=== PATIENT | male | born 1935 | race Caucasian/White ===

== ENCOUNTER 2017-12-14 17:37 | Emergency (ER) | payer MEDICARE, OTHER ==
--- NOTE | 2017-12-14 17:55 | ED Physician Documentation ---
PD HPI FOCAL NEURO - Stated complaint Stated Complaint: L SIDE WEAKNESS - Chief complaint Chief Complaint: Neuro - History obtained from History obtained from: Patient, Family - History of Present Illness Timing - onset: Today Timing - duration: Minutes (the patient had gone for his usual walk down the road and back, about 3/4 mile, and he said he was feeling okay. He got in the house and his daughter and thought he was leaning to the side and had and was maybe slightly slow to answer questions. No focal weakness, facial droop, trouble articulating words. He was able to walk up to garage without ataxia.) Timing - details: Abrupt onset, Now resolved Severity of deficit: Mild Weakness: Other. No: Face, Hand, Leg Numbness: Other. No: Face, Hand, Leg Associated symptoms: No: Headache, Nausea / vomiting, Head injury Contributing factors: negative: Anticoagulated, Vascular dz, Atrial fibrillation Baseline status: positive: A&OX3, ambulatory, indep Similar symptoms before: Has not had sx before Recently seen: Not recently seen Review of Systems Constitutional: denies: Fever, Chills, Myalgias Nose: denies: Rhinorrhea / runny nose, Congestion Throat: denies: Sore throat Cardiac: denies: Chest pain / pressure, Palpitations Respiratory: denies: Dyspnea, Cough, Wheezing GI: denies: Abdominal Pain, Nausea, Vomiting Skin: denies: Abrasion (s), Laceration (s) Musculoskeletal: denies: Neck pain, Back pain Neurologic: denies: Generalized weakness, Focal weakness, Numbness, Near syncope PD PAST MEDICAL HISTORY - Past Medical History Cardiovascular: None Respiratory: None Neuro: None Endocrine/Autoimmune: Type 2 diabetes - Past Surgical History General: Appendectomy, Other - Present Medications Home Medications: Ambulatory Orders Medication Instructions Recorded Confirmed Aspirin Chewable [[place] 81 mg PO DAILY 08/09/13 09/08/14 Aspirin] Metformin HCl 500 mg PO DAILY 08/09/13 09/08/14 Metronidazole/Skin Cleansr #23 1 each TP DAILY 08/09/13 09/08/14 [Rosadan 0.75% Cream Kit] Mometasone Furoate [Elocon] 15 gm TP DAILY 08/09/13 09/08/14 Multivit-Min/FA/Lycopene/Lut 1 tab PO DAILY 08/09/13 09/08/14 [Centrum Silver Tablet] Simvastatin [Zocor] 40 mg PO DAILY 08/09/13 09/08/14 Epinephrine [Epipen 2-Lion] 0.3 mg SUBQ ONCE PRN 08/10/13 09/06/14 - Allergies Allergies/Adverse Reactions: Allergies Allergy/AdvReac Type Severity Reaction Status Date / Time sea food Allergy Severe Respiratory Uncoded 08/10/13 08:54 - Living Situation Living Situation: reports: With spouse/s.o. Living Arrangement: reports: At home - Social History Smoking Status: Never smoker PD ED PE NORMAL - Vitals Vital signs reviewed: Yes - General General: Alert and oriented X 3, No acute distress, Well developed/nourished - HEENT HEENT: Atraumatic, Pharynx benign - Neck Neck: Supple, no meningeal sign, No adenopathy - Cardiac Cardiac: RRR, No murmur - Respiratory Respiratory: Clear bilaterally - Abdomen Abdomen: Normal bowel sounds, Soft, Non tender, Non distended - Back Back: No CVA TTP - Derm Derm: Normal color, Warm and dry - Extremities Extremities: No deformity, No tenderness to palpate, Normal ROM s pain, No edema, No calf tenderness / cord - Neuro Neuro: Alert and oriented X 3, 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, No motor deficit, No sensory deficit, Normal speech Eye Opening: Spontaneous Motor: Obeys Commands Verbal: Oriented GCS Score: 15 NIHSS - Level of Consciousness Level of consciousness: (0) Alert, Keenly responsive LOC Questions: (0) Answers both Q's correct LOC Commands: (0) Performs both correctly - Gaze Best Gaze: (0) Normal - Visual Visual: (0) No loss - Facial Palsy Facial Palsy: (0) Normal, symmetrical movement - Motor Arms (both separate) Motor Arm (right): (0) No drift Motor Arm (left): (0) No drift - Motor Legs (both separate) Motor Leg (right): (0) No drift Motor Leg (left): (0) No drift - Limb Ataxia Limb Ataxia: (0) Absent - Sensory Sensory: (0) Normal - Best Language Best Language: (0) No aphasia - Dysarthria Dysarthria: (0) Normal - Extinction and Inattention (formally neg Extinction and inattention: (0) No abnormality - Total Score/Results Total Score/Result: 0 Results - Vitals Vitals: Vital Signs - 24 hr 12/14/17 17:44 Temperature 36.3 C L Heart Rate 77 Respiratory 14 Rate Blood Pressure 135/91 H O2 Saturation 100 Oxygen O2 Source Room air - Rads (name of study) head CT Radiology: Prelim report reviewed (normal) neck and head angio Radiology: Prelim report reviewed, Discussed with rads (no signs of CVA, stenoses, dissections. Normal studies. ) PD MEDICAL DECISION MAKING - ED course Complexity details: considered differential (His symptoms are mild and not clearly TIA. His daughter and state he does seem to be leaning to one side but was still able to walk straight and did not have any focal weaknesses nor visual change. I did do CT and CTA and some blood tests. These are normal. He does take an aspirin a day anyway for heart. I do not see that he would benefit from hospitalization. He would like to go home. He is discharged stable without any problems at this time.), d/w patient, d/w family Departure - Departure Disposition: 01 Home, Self Care Clinical Impression: Ataxia Condition: Stable Record reviewed to determine appropriate education?: Yes Instructions: ED Transient Ischemic Attack Follow-Up: Deshawn Quintero MD [Primary Care Provider] - Comments: The description of your symptoms is not clear if it was neurologic or vascular of the brain. There is no signs of stroke or blood flow abnormality to the brain at this time. You can be a bit off balance related to in her ear at times as well. At this point continue your baby aspirin daily. Drink lots of fluids. Continue your other usual medicines. Follow-up with your primary care or return to the ER if recurrent episodes or other symptoms. Discharge Date/Time: 12/14/17 20:41
[2017-12-14 18:46] LABS: BASOPHILS # (AUTO) 0.1 10^3/uL (0.0-0.1); EOSINOPHILS # (AUTO) 0.1 10^3/uL (0.0-0.7); EOSINOPHILS % (AUTO) 1.9 %; HGB - HEMOGLOBIN 15.4 g/dL (14.0-18.0); LYMPHOCYTES # (AUTO) 2.4 10^3/uL (1.5-3.5); LYMPHOCYTES % (AUTO) 35.7 %; MEAN CORPUSCULAR HEMOGLOBIN 29.7 pg (27.0-31.0); MEAN CORPUSCULAR HGB CONC 34.3 g/dL (32.0-36.0); MEAN CORPUSCULAR VOLUME 86.5 fL (80.0-94.0); MEAN PLATELET VOLUME 8.5 fL (7.4-11.4); MONOCYTES # (AUTO) 0.9 10^3/uL (0.0-1.0); MONOCYTES % (AUTO) 13.5 %; NEUTROPHILS # (AUTO) 3.2 10^3/uL (1.5-6.6); NEUTROPHILS % (AUTO) 47.9 %; PLT - PLATELET COUNT 173 10^3/uL (130-450); RED BLOOD COUNT 5.19 10^6/uL (4.70-6.10); RED CELL DISTRIBUTION WIDTH 14.2 % (12.0-15.0); WHITE BLOOD COUNT 6.6 x10^3/uL (4.8-10.8)
[2017-12-14] MEDS ORDERED: IOPAMIDOL-300 100 ML VIAL ONE (18:53)
[2017-12-14 18:57] LABS: ALBUMIN/GLOBULIN RATIO 1.1 (1.0-2.2); BILIRUBIN,TOTAL 0.4 mg/dL (0.2-1.0); CALCIUM 8.9 mg/dL (8.5-10.3); CREATININE 0.9 mg/dL (0.6-1.2); MAGNESIUM 2.3 mg/dL (1.7-2.8); TOTAL PROTEIN 7.6 g/dL (6.7-8.2)
[2017-12-14] MEDS ORDERED: ONDANSETRON 4 MG/2 ML VIAL IVP STA (19:24)
[2017-12-14] MEDS ORDERED: ONDANSETRON 4 MG/2 ML VIAL ONE (19:26)
[2017-12-14] MEDS ORDERED: IOPAMIDOL-300 100 ML VIAL IVP ONE (19:35)
--- NOTE | 2017-12-14 19:59 | CT Report ---
Reason: balance symptoms this afternoon Procedure Date: 12/14/2017 Accession Number: [id number] / [id number] Procedure: CT - Neck Angio CPT Code: FULL RESULT: EXAM: CT ANGIOGRAM NECK EXAM DATE: 12/14/2017 07:13 PM. CLINICAL HISTORY: 82-year-old male. Balance symptoms this afternoon. COMPARISON: NECK ANGIO 12/14/2017 7:31 PM. TECHNIQUE: Routine axial helical imaging was performed from the skull base through the aortic arch. Reconstructions: Routine multiplanar 3D MIP reconstructions. IV Contrast: 80 cc Isovue-300. Evaluation of arterial stenosis is based on a NASCET method of measurement. In accordance with CT protocol optimization, one or more of the following dose reduction techniques were utilized for this exam: automated exposure control, adjustment of mA and/or KV based on patient size, or use of iterative reconstructive technique. FINDINGS: Right Carotid: The common carotid, internal carotid, and external carotid arteries are widely patent. No dissection, significant atherosclerotic plaque, or calcification identified. Left Carotid: The common carotid, internal carotid, and external carotid arteries are widely patent. No dissection, significant atherosclerotic plaque, or calcification identified. Vertebrals: The vertebrobasilar system shows no stenoses. Intracranial Circulation: Concurrently obtained CTA head is dictated separately. Other: The visualized lung apices are clear. Moderate multilevel degenerative spondylosis of the visualized spine, no acute fracture or malalignment. The visualized soft tissues of the neck demonstrate no acute abnormality. IMPRESSION: 1. No CTA evidence of hemodynamically significant stenosis, large vessel occlusion, acute dissection, aneurysm, or vascular malformation within extracranial arteries. 2. Concurrently obtained CTA head is dictated separately. RADIA The above findings were discussed with Talha Marroquin by Dr. Emery Hansen at 19:56 hrs on 12/14/17.
--- NOTE | 2017-12-14 20:06 | CT Report ---
Reason: balance symptoms this afternoon Procedure Date: 12/14/2017 Accession Number: [id number] / [id number] Procedure: CT - Head Angio CPT Code: FULL RESULT: EXAM: CT ANGIOGRAM HEAD. CT SCAN OF THE HEAD WITHOUT AND WITH CONTRAST. EXAM DATE: 12/14/2017 07:13 PM CLINICAL HISTORY: 10-year-old male. Balance symptoms this afternoon. COMPARISON: HEAD ANGIO 12/14/2017 7:31 PM. TECHNIQUE: - CT Scan Head: Using a multidetector scanner, axial images were acquired from the foramen magnum to the skull vertex prior to and following contrast administration. - CT Angiogram: Using a multidetector scanner, high-resolution axial images were acquired from the skull base through vertex following rapid infusion of intravenous contrast. Reformats: Multiplanar MIP reformats were reconstructed. Nascet criteria used for stenosis measurement. IV Contrast: 80 cc Omnipaque 350. In accordance with CT protocol optimization, one or more of the following dose reduction techniques were utilized for this exam: automated exposure control, adjustment of mA and/or KV based on patient size, or use of iterative reconstructive technique. FINDINGS: NON-CONTRAST HEAD: Parenchyma: No intraparenchymal hemorrhage. No evidence of mass, midline shift, or CT findings of infarction. Kelley-white differentiation is distinct. Moderate scattered periventricular and deep white matter hypodensities, nonspecific, likely representing sequela of chronic microangiopathy. Extraaxial Spaces: Normal for age. No subdural or epidural collections identified. Ventricles: Normal in size and position. Sinuses and orbits: Status post bilateral lens replacement surgery. Imaged paranasal sinuses, orbits, and mastoids show no significant abnormality. Bones: No evidence of fracture or calvarial defect. Other: None. POST-CONTRAST HEAD: No abnormal enhancement. CT ANGIOGRAM HEAD: Mild atherosclerosis right carotid siphon, maximal stenosis 20-30%. Mild atherosclerosis left carotid siphon, maximal stenosis 20-30%. The posterior communicating arteries are not clearly visualized on either side, likely hypoplastic or aplastic. The basilar artery appears unremarkable. The left TUFT MACHINE OPERATOR appears unremarkable. The right TUFT MACHINE OPERATOR appears unremarkable. The right MCA appears unremarkable. The ACAs bilaterally appear unremarkable. The left MCA is unremarkable. DURAL VENOUS SINUSES AND MAJOR CENTRAL VEINS: Patent. IMPRESSION: 1. No evidence of acute intracranial abnormality on the noncontrast CT head. Specifically, no evidence of acute infarct, intracranial hemorrhage, mass effect, midline shift, or hydrocephalus. 2. Moderate scattered periventricular and deep white matter hypodensities, nonspecific, likely representing sequela of chronic microangiopathy. 3. No abnormal enhancement on the postcontrast CT head. 4. No CTA evidence of high-grade stenosis, large vessel occlusion, acute dissection, aneurysm, or vascular malformation within intracranial arteries. 5. Concurrently obtained CTA neck is dictated separately. 6. Mild atherosclerosis right carotid siphon, maximal stenosis 20-30%. 7. Mild atherosclerosis left carotid siphon, maximal stenosis 20-30%. RADIA The above findings were discussed with Talha Marroquin by Dr. Emery Hansen at 19:56 hrs on 12/14/17.
[2017-12-14 20:42] VITALS: BP 103/88
== END 2017-12-14 20:41 | disposition home or self-care (01) ==
LOC: ED 17:37
DX: R27.0 Ataxia, unspecified (principal); E11.9 Type 2 diabetes mellitus without complications; Z79.82 Long term (current) use of aspirin
CPT/HCPCS: 36415; 70496; 70498; 80053; 83690; 83735; 85025; 96374; 99283; 99284; Q9967

== ENCOUNTER 2021-01-05 11:20 | Outpatient (CLI) | payer MEDICARE, OTHER | END 2021-01-05 11:21 | disposition critical access hospital (66) | LOC: EMS 11:20 | DX: R41.0 Disorientation, unspecified (principal); R29.898 Other symptoms and signs involving the musculoskeletal system | CPT/HCPCS: A0425; A0429 ==

== ENCOUNTER 2021-01-05 11:52 | Inpatient (IN) | payer MEDICARE, OTHER ==
--- NOTE | 2021-01-05 12:12 | ED Physician Documentation ---
History of Present Illness - Stated complaint Stated Complaint: FOUND DOWN - Chief complaint Chief Complaint: Neuro - Additonal information Additional information: 85-year-old male who carries a history of dementia is brought in via EMS after being found by his this morning on the bathroom floor. He had apparently soiled himself. It is unclear how long he had remained on the floor. Here in the emergency department we are unable to elicit any history from the patient as he is quite nonverbal. He is able simply to say yes appropriately to some questions. His last known baseline normal was yesterday evening. I have spoken to the patient's daughter at the bedside. She indicates that she is the DURABLE POWER OF OBSTETRICIAN AND GYNAECOLOGIST for the patient. She states that the patient is a DNR. At baseline he is able to typically say hello yes or no, But is not typically more verbal than that. Most of his speech is garbled at baseline. He is also not cognizant to date time year place or situation at baseline. He is however ambulatory and does not use assistive devices. Meds: Seroquel Review of Systems Unable to obtain: Dementia PD PAST MEDICAL HISTORY - Past Medical History Cardiovascular: None Respiratory: None Neuro: None Endocrine/Autoimmune: Type 2 diabetes - Past Surgical History General: Appendectomy, Other - Present Medications Home Medications: Ambulatory Orders Medication Instructions Recorded Confirmed Aspirin Chewable [St [place]adimir 81 mg PO DAILY 08/09/13 09/08/14 Aspirin] Metformin HCl 500 mg PO DAILY 08/09/13 09/08/14 Metronidazole/Skin Cleansr #23 1 each TP DAILY 08/09/13 09/08/14 [Rosadan 0.75% Cream Kit] Mometasone Furoate [Elocon] 15 gm TP DAILY 08/09/13 09/08/14 Multivit-Min/FA/Lycopene/Lut 1 tab PO DAILY 08/09/13 09/08/14 [Centrum Silver Tablet] Simvastatin [Zocor] 40 mg PO DAILY 08/09/13 09/08/14 EPINEPHrine [Epipen 2-Lion] 0.3 mg SUBQ ONCE PRN 08/10/13 09/06/14 - Allergies Allergies/Adverse Reactions: Allergies Allergy/AdvReac Type Severity Reaction Status Date / Time sea food Allergy Severe Respiratory Uncoded 01/05/21 12:06 - Social History Smoking Status: Never smoker PD ED PE EXPANDED - General General: Alert, No acute distress - Cardiac Cardiac: Regular Rate, Radial strong equal, Pedal strong equal, Cap refill < 2 sec. No: Murmur Present - Respiratory Respiratory: Clear to ausultation cristine. No: Distress, Labored - Abdomen Abdomen: Normal Bowel sounds. No: Tender to palpation - Extremities Extremities: Normal, Other (No movement of the right arm or right leg despite painful stimuli.). No: Deformity, Tenderness - Neuro Neuro: Confused, Other (no obvious facial droop; incoherent speech; pt is unable to raise arm on right side, though he does on the left side) - GCS Eye Opening: Spontaneous Motor: Localizes to Pain Verbal: Incomprehensible Total: 11 Results - Vitals Vitals: Vital Signs - 24 hr 01/05/21 01/05/21 01/05/21 11:59 12:14 14:06 Temperature 36.4 C L 36.5 C Heart Rate 78 78 78 Respiratory 20 20 16 Rate Blood Pressure 136/78 H 136/78 H 136/78 H O2 Saturation 97 97 97 01/05/21 16:00 Temperature 36.5 C Heart Rate 85 Respiratory 16 Rate Blood Pressure 130/88 H O2 Saturation 96 Oxygen O2 Source Room air - EKG (time done) 1231 Rate: Rate (enter#) (89) Rhythm: NSR [place]: Normal Intervals: Normal [place]. No: Prolonged QT Ischemia: Q waves Compare to prior EKG: Old EKG unavailable Computer interpretation: Agree with computer - Labs Labs: Laboratory Tests 01/05/21 01/05/21 01/05/21 12:22 12:22 12:22 WBC 8.3 RBC 5.35 Hgb 15.7 Hct 48.2 MCV 90.1 MCH 29.3 MCHC 32.6 RDW 14.5 Plt Count 174 MPV 10.5 Neut # (Auto) 5.5 Lymph # (Auto) 2.0 [place] # (Auto) 0.7 Eos # (Auto) 0.1 Baso # (Auto) 0.1 Absolute Nucleated RBC 0.00 Nucleated RBC % 0.0 Sodium 142 Potassium 4.3 Chloride 103 Carbon Dioxide 27 Anion Gap 12.0 BUN 15 Creatinine 1.1 Estimated GFR (MDRD) 64 L Glucose 128 H Lactic Acid 2.3 H Calcium 9.7 Total Bilirubin 1.4 H AST 22 ALT 18 Alkaline Phosphatase 93 Total Creatine Kinase 73 Troponin I High Sens Total Protein 8.2 Albumin 4.3 Globulin 3.9 Albumin/Globulin Ratio 1.1 Lipase 26 Urine Color Urine Clarity Urine pH Ur Specific [place] Urine Protein Urine Glucose (UA) Urine Ketones Urine Occult Blood Urine Nitrite Urine Bilirubin Urine Urobilinogen Ur Leukocyte Esterase Ur Microscopic Review Urine Culture Comments 01/05/21 01/05/21 12:22 15:46 WBC RBC Hgb Hct MCV MCH MCHC RDW Plt Count MPV Neut # (Auto) Lymph # (Auto) [place] # (Auto) Eos # (Auto) Baso # (Auto) Absolute Nucleated RBC Nucleated RBC % Sodium Potassium Chloride Carbon Dioxide Anion Gap BUN Creatinine Estimated GFR (MDRD) Glucose Lactic Acid Calcium Total Bilirubin AST ALT Alkaline Phosphatase Total Creatine Kinase Troponin I High Sens 6.5 Total Protein Albumin Globulin Albumin/Globulin Ratio Lipase Urine Color YELLOW Urine Clarity CLEAR Urine pH 7.0 Ur Specific [place] 1.010 Urine Protein NEGATIVE Urine Glucose (UA) NEGATIVE Urine Ketones NEGATIVE Urine Occult Blood NEGATIVE Urine Nitrite NEGATIVE Urine Bilirubin NEGATIVE Urine Urobilinogen 0.2 (NORMAL) Ur Leukocyte Esterase NEGATIVE Ur Microscopic Review NOT INDICATED Urine Culture Comments NOT INDICATED - Rads (name of study) CXR Radiology: Prelim report reviewed, Final report received CT head Radiology: Final report received (No acute intracranial process) CTA head/neck Radiology: Final report received, See rad report (Segment of high-grade stenosis occlusion within the distal petrous portion of the left internal carotid artery. No areas of hemodynamically significant stenosis, vascular occlusion or aneurysmal dilation within the neck vasculature.) PD MEDICAL DECISION MAKING - ED course Complexity details: reviewed results, re-evaluated patient, considered differential, d/w patient ED course: 85-year-old male presents the emergency department after being found down on the floor of his home where he was found soiled and incontinent of urine and feces. This gentleman does have advanced dementia and is on Seroquel only. At baseline he is confused to person place date and time. Verbally he simply answers yes or no to most questions but his speech is otherwise garbled. Today screening labs are without any acute worrisome abnormalities. His EKG is a sinus rhythm without any acute ischemic changes. Initial head CT does not show any acute findings. However on presentation this gentleman does not appear to be moving his right side though he has no obvious focal deficits within his face otherwise. He is a DNR. CT angio of the head and neck is pending. We are going to attempt to arrange an MRI at [facility]. I have discussed this case with Dr. Prater our hospitalist weatherization director. Assuming no Large vessel occlusion on the CT angios the patient can be admitted to our hospital for observation and further evaluation 1640: CT angio of the head and neck has demonstrated of very focal high-grade stenosis occlusion within the distal portion of the left ICA. I did speak with the stroke physician on-call at [facility] Dr. Lopez. Given that this patient's last time of normal was yesterday evening, the unknown downtime, the patient's significant dementia he would not recommend transfer for emergent thrombectomy. We are now approaching the 18 to 24-hour amaris since last being known normal and Dr. Lopez did not feel that thrombectomy would significantly change his outcome. He felt the patient was likely to continue with significant disability despite any intervention. He would not recommend dual antiplatelet therapy as the risk of bleeding within the area of evolving infarct is quite high. I have discussed these recommendations and findings with the patient's daughter and her granddaughter. They understand that [facility] and Dr. Lopez did not feel the patient was a candidate for mechanical thrombectomy. Thus the patient will be admitted to our hospital for further evaluation of his stroke. This patient is a DNR with limited interventions. The family is open to discussing the possibility of hospice care if his symptoms do not improve in a timely fashion. Departure - Departure Disposition: 66 [facility] DC/Xfer Clinical Impression: CVA (cerebral vascular accident) Qualifiers: CVA mechanism: other Qualified Code(s): I63.89 - Other cerebral infarction Carotid artery disease Qualifiers: Carotid artery disease type: stenosis Laterality: left Qualified Code(s): I65.22 - Occlusion and stenosis of left carotid artery
[2021-01-05 12:31] LABS: BASOPHILS # (AUTO) 0.1 10^3/uL (0.0-0.1); BASOPHILS % (AUTO) 0.6 %; EOSINOPHILS # (AUTO) 0.1 10^3/uL (0.0-0.7); HCT - HEMATOCRIT 48.2 % (42.0-52.0); HGB - HEMOGLOBIN 15.7 g/dL (14.0-18.0); LYMPHOCYTES % (AUTO) 23.7 %; MEAN CORPUSCULAR HEMOGLOBIN 29.3 pg (27.0-31.0); MEAN CORPUSCULAR HGB CONC 32.6 g/dL (32.0-36.0); MEAN CORPUSCULAR VOLUME 90.1 fL (80.0-94.0); MEAN PLATELET VOLUME 10.5 fL (7.4-11.4); MONOCYTES # (AUTO) 0.7 10^3/uL (0.0-1.0); MONOCYTES % (AUTO) 8.9 %; NEUTROPHILS # (AUTO) 5.5 10^3/uL (1.5-6.6); NEUTROPHILS % (AUTO) 65.6 %; PLT - PLATELET COUNT 174 10^3/uL (130-450); RED BLOOD COUNT 5.35 10^6/uL (4.70-6.10); RED CELL DISTRIBUTION WIDTH 14.5 % (12.0-15.0); WHITE BLOOD COUNT 8.3 x10^3/uL (4.8-10.8)
[2021-01-05 12:42] LABS: ALBUMIN 4.3 g/dL (3.2-5.5); ALBUMIN/GLOBULIN RATIO 1.1 (1.0-2.2); BILIRUBIN,TOTAL 1.4 mg/dL (0.2-1.0); CALCIUM 9.7 mg/dL (8.5-10.3); CREATININE 1.1 mg/dL (0.6-1.2); POTASSIUM 4.3 mmol/L (3.5-5.0); TOTAL PROTEIN 8.2 g/dL (6.7-8.2)
--- NOTE | 2021-01-05 12:51 | XRAY Report ---
PROCEDURE: Chest 1 View X-Ray INDICATIONS: chest pain TECHNIQUE: One view of the chest was acquired. COMPARISON: None FINDINGS: Surgical changes and devices: None. Lungs and pleura: No pleural effusions or pneumothorax. Minimal increased vascularity. Mediastinum: Mediastinal contours appear normal. Heart size is mildly prominent. Bones and chest wall: No suspicious bony lesions. Overlying soft tissues appear unremarkable. IMPRESSION: Minimal appearance of increased pulmonary vascularity. Reviewed by: Marii Ramachandran MD on 01/05/2021 12:50 PM PDT Approved by: Marii Ramachandran MD on 01/05/2021 12:50 PM PDT Station ID: [id number]
--- NOTE | 2021-01-05 13:01 | CT Report ---
PROCEDURE: HEAD WO INDICATIONS: found down TECHNIQUE: Noncontrast 4.5 mm thick angled axial sections acquired from the foramen magnum to the vertex. For r adiation dose reduction, the following was used: automated exposure control, adjustment of mA and/or kV according to patient size. COMPARISON: Brain MRI 12/26/2015. FINDINGS: Image quality: Excellent. CSF spaces: Basal cisterns are patent. No extra-axial fluid collections. The ventricles are symmet nilda in size and shape. Brain: No intracranial bleeds or masses. There is cerebral volume loss for age, with resultant vent ricular and sulcal prominence. There are periventricular and deep white matter chronic small vessel ischemic changes. There is intracranial internal carotid artery and vertebral artery atherosclerosis . Skull and face: Calvarium and visualized facial bones appear intact, without suspicious lesions. Sma ll left occipital scalp contusion. Sinuses: Visualized sinuses and mastoids are clear. IMPRESSION: No acute intracranial disease process. Reviewed by: Loly Jordan MD, PhD on 01/05/2021 11:59 AM ERNESTO Approved by: Loly Jordan MD, PhD on 01/05/2021 11:59 AM ERNESTO Station ID: [id number]
[2021-01-05] MEDS ORDERED: SODIUM CHLORIDE 0.9% 1,000 ML IV STA (13:40)
[2021-01-05] MEDS ORDERED: ASPIRIN 325 MG TABLET PO STA (14:10)
[2021-01-05] MEDS ORDERED: IOVERSOL 320 100 ML VIAL IVP ONE ×2 (14:14→17:18)
[2021-01-05 15:54] LABS: BILIRUBIN,URINE NEGATIVE (NEGATIVE); GLUCOSE, URINE (UA) NEGATIVE (NEGATIVE); KETONES,URINE (UA) NEGATIVE (NEGATIVE); LEUKOCYTE ESTERASE, URINE NEGATIVE (NEGATIVE); NITRITE,URINE NEGATIVE (NEGATIVE); OCCULT BLOOD,URINE NEGATIVE (NEGATIVE); PROTEIN,URINE NEGATIVE (NEGATIVE); UROBILINOGEN,URINE 0.2 (NORMAL) E.U./dL (NORMAL)
[2021-01-05 16:01] LABS: CLARITY,URINE CLEAR (CLEAR)
--- NOTE | 2021-01-05 16:01 | CT Report ---
PROCEDURE: ANGIO HEAD W/WO INDICATIONS: L sided facial droop CONTRAST: IV CONTRAST: Optiray 320 ml: 80 PO CONTRAST: *NO PO CONTRAST TECHNIQUE: Precontrast 4.5 mm thick angled axial sections acquired from the foramen magnum to the vertex. Afte r the administration of intravenous contrast, 1 mm thick sections acquired through the [place] of [place] is. Postcontrast 4.5 mm thick sections then re-acquired from the foramen magnum to the vertex. 3-di mensional xsawbrw-mvmyqexfd-mavbginudp (MIP) and/or volume rendering reformats were acquired of the c entral intracranial vasculature. For radiation dose reduction, the following was used: automated ex posure control, adjustment of mA and/or kV according to patient size. COMPARISON: CT head, CTA neck 01/05/2021, MRI brain report 12/26/2015, CTA head and neck report 12/01, images not available for direct comparison. FINDINGS: Image quality: Excellent. Anterior circulation: Intracranial internal carotid arteries demonstrate 20-30% narrowing of the sup raclinoid portion bilaterally, unchanged. There is a short segment of high-grade stenosis/near occlus ion within the distal petrous portion of the left internal carotid artery. It is noted images from pr ior exam in 2018 are not available for comparison. This area of high-grade stenosis was not identifie d in the available report. Distal reconstitution is present. The flow within the paired anterior cerebral arteries is normal and symmetric. The flow within the m iddle cerebral arteries is normal and symmetric. The anterior communicating artery is seen. No aneu rysms are seen. Posterior circulation: Visualized portions of the vertebral arteries demonstrate normal caliber, and join to form a normal appearing basilar artery. Flow within the posterior cerebral arteries is norm al and symmetric. No aneurysms are seen. There is a right vertebral artery dominance. The ventricular system and cortical sulci demonstrate atrophy, consistent for patient's stated age. There are areas of hypodensity in the periventricular and subcortical white matter. There is no acut e intra or extra-axial fluid collection. No acute hemorrhage, mass lesion or midline shift. Brainst em is unremarkable. Globes are symmetrical. Sinuses are aerated. Osseous structures are intact. IMPRESSION: 1. No acute intracranial process. 2. Moderate atrophy and chronic microvascular ischemic changes. 3. 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 Prior exam images are not available for review. However, no stenosis is identified within th e available report. Recommend correlation patient's symptoms as new focus of occlusion cannot be excl uded. Reviewed by: Marii Ramachandran MD on 01/05/2021 4:00 PM PDT Approved by: Marii Ramachandran MD on 01/05/2021 4:00 PM PDT Station ID: [id number]
--- NOTE | 2021-01-05 16:06 | CT Report ---
PROCEDURE: ANGIO NECK W INDICATIONS: L sided facial droop, L neck pain CONTRAST: IV CONTRAST: Optiray 320 ml: 80 PO CONTRAST: *NO PO CONTRAST TECHNIQUE: After the administration of intravenous contrast, 1.5 mm axial sections acquired from the aortic arch to the [place] of [place]. Coronal 3-D maximum intensity projection (MIP) and/or volume rendering ref ormats were then performed. For radiation dose reduction, the following was used: automated exposur e control, adjustment of mA and/or kV according to patient size. COMPARISON: CT head 01/05/2021, MRI brain report 12/26/2015, CTA head and neck report 12/14/2017, manpreet ges not available for direct comparison. FINDINGS: Image quality: Excellent. The origins of the left and right common, internal and external carotid arteries demonstrate no areas of hemodynamically significant stenosis, vascular occlusion or aneurysmal dilation. Origin of the le ft vertebral artery and right vertebral artery demonstrate no areas of hemodynamically significant st enosis, vascular occlusion or aneurysmal dilation. As identified on CTA head exam, there is a short s egment focus of high-grade stenosis/occlusion within the distal petrous portion of the left internal carotid artery with distal reconstitution. Aortic arch demonstrates conventional anatomy. Limited, vi sualized portions of the subclavian vasculature are unremarkable. IMPRESSION: 1. Focal segment of high-grade stenosis/occlusion within the distal petrous portion of the left inter nal carotid artery. Please see CTA head report for further details. 2. There are no areas of hemodynamically significant stenosis, vascular occlusion or aneurysmal dilat ion within the neck vasculature. The estimate of stenosis included in the report of the imaging study was calculated using the NASCET method CLINICAL RECOMMENDATION STATEMENTS: In patients <35 years with an ITN detected on CT, MRI, or extrathyroidal ultrasound, the Committee re commends further evaluation with dedicated thyroid ultrasound if the nodule is "e1 cm and has no susp icious imaging features, and if the patient has normal life expectancy. In patients "e35 years with an ITN detected on CT, MRI, or extrathyroidal ultrasound, the Committee r ecommends further evaluation with dedicated thyroid ultrasound if the nodule is "e1.5 cm and has no s uspicious imaging features, and if the patient has normal life expectancy. (ACR, 2014) Reviewed by: Marii Ramachandran MD on 01/05/2021 4:05 PM PDT Approved by: Marii Ramachandran MD on 01/05/2021 4:05 PM PDT Station ID: [id number]
[2021-01-05] MEDS ORDERED: QUEtiapine 25 MG TABLET PO STA (16:52)
[2021-01-05] MEDS ORDERED: ONDANSETRON 4 MG/2 ML VIAL IVP PRN (16:58)
[2021-01-05] MEDS ORDERED: SODIUM CHLORIDE FLUSH 0.9% 10 ML SYRINGE IVP PRN (16:58)
[2021-01-05] MEDS ORDERED: ACETAMINOPHEN 325 MG TABLET PO PRN (16:58)
[2021-01-05] MEDS ORDERED: LORazepam 2 MG/ML VIAL IVP STA (17:15)
--- NOTE | 2021-01-05 17:24 | HISTORY & PHYSICAL EXAMINATION ---
Chief Complaint - Chief Complaint Chief Complaint: stroke History of Present Illness - Admitted From Admitted From:: medical floor - History Obtained From Records Reviewed: [facility] History obtained from: pt's daughter and grand daughter Exam Limitations: pt's advanced dementia - History of Present Illness HPI Comment/Other: This is a 85-year-old male with A past medical history significant for advanced dementia who presents the emergency department for evaluation of stroke. Patient has history of advanced dementia, he barely speak. Patient's daughter is at the bedside. She provide pt's medical history. patient's last time seen normal was yesterday evening. Pt was found to being down on the floor at his home bathroom at this morning around 6 am, where he was soiled and incontinent with urine and feces. In the assessment, pt present significant right side Upper and lower extremity weakness. his facial seem no drooped. his daughter report his speech is as his baseline, he can answers yes or no but mainly on garbled. CT angio of the head and neck find pt has focal high-grade stenosis occlusion within the distal portion of the left ICA. ER provider called neurologist. Neurologist recommend pt is not candidate for thrombectomy, also recommend no dual antiplatelet therapy due to the risk of bleeding. ER provider discussed the care plan with pt's daughter at the bedside. pt is DNR with limited intervention, pt is opening for discussing the possibility of hospice care if his symptoms does not improve. Discussed the care plan with patient's daughter at the bedside, she wanted to focus for quality of life for his father, and code status is DNR History - Past Medical History Cardiovascular: reports: None Respiratory: reports: None Neuro: reports: None Endocrine/Autoimmune: reports: Type 2 diabetes - Past Surgical History General: reports: Appendectomy, Other - Family & Social History Family History: Mother: , Father: Family History Comment/Other: Patient's daughter report her grandmother at age 53 with [place], Her grandfather at age 72 with pneumonia Social History Notes: Patient's daughter reported her father has remote Smoking history, no alcohol or drug issue. Meds/Allgy - Home Medications Home Medications: Ambulatory Orders Medication Instructions Recorded Confirmed Aspirin Chewable [[place] 81 mg PO DAILY 08/09/13 09/08/14 Aspirin] Metformin HCl 500 mg PO DAILY 06/09/14 07/09/15 Metronidazole/Skin Cleansr #23 1 each TP DAILY 08/09/13 09/08/14 [[place] 0.75% Cream Kit] Mometasone Furoate [Elocon] 15 gm TP DAILY 08/09/13 09/08/14 Multivit-Min/FA/Lycopene/Lut 1 tab PO DAILY 08/09/13 09/08/14 [Centrum Silver Tablet] Simvastatin [Zocor] 40 mg PO DAILY 08/09/13 09/08/14 EPINEPHrine [Epipen 2-Lion] 0.3 mg SUBQ ONCE PRN 08/10/13 09/06/14 Quetiapine Fumarate [Seroquel] 01/05/21 - Allergies Allergies/Adverse Reactions: Allergies Allergy/AdvReac Type Severity Reaction Status Date / Time sea food Allergy Severe Respiratory Uncoded 01/05/21 12:06 Review of Systems - All Other Systems All Other Systems: reports: Other (pt has advanced dementia, he could not provide ROS) Exam - Vital Signs Vital Signs: Vital Signs x48h Temp Pulse Resp BP Pulse Ox 01/05/21 16:00 36.5 C 85 16 130/88 H 96 01/05/21 14:06 78 16 136/78 H 97 01/05/21 12:14 36.5 C 78 20 136/78 H 97 01/05/21 11:59 36.4 C L 78 20 136/78 H 97 - Physical Exam General Appearance: positive: No acute distress, Alert. negative: Lethargic Eyes Bilateral: positive: Normal inspection, No lid inflammation ENT: positive: ENT inspection nml, No signs of dehydration. negative: Purulent nasal drainage Neck: positive: Nml inspection, Trachea midline. negative: Thyromegaly, Tracheal deviation Respiratory: positive: Chest non-tender, No respiratory distress. negative: Wheezes Cardiovascular: positive: Regular rate & rhythm, No murmur. negative: Tachycardia, Bradycardia, Systolic murmur Peripheral Pulses: positive: 2+ Abdomen: positive: Non-tender, Nml bowel sounds, No distention Back: positive: Nml inspection Skin: positive: Color nml, Warm, Dry. negative: Cyanosis Extremities: positive: Nml appearance, Other (Right upper and lower extremity weakness) Neurologic/Psychiatric: positive: Weakness (Right upper and lower extremity weakness), Slurred/abnml speech. negative: Facial droop Conclusion/Plan - Problem List (1) CVA (cerebral vascular accident) Conclusion/Plan: pt present significant right upper and lower extremity weakness. CTA of head and neck reveal focal high-grade stenosis occlusion within the distal portion of the left ICA. pt was consulted with neurologist, pt is not candidate for thrombectomy. pt's family understood. unfortunately we do not have MRI and ECHO at weekend. plan: aspirin and lipitor, lipid panel check, PT/OT evaluated and treated for pt. pt's daughter report pt has no obvious issue for swallowing now, start with Dysphagia diet. Qualifiers: CVA mechanism: other Qualified Code(s): I63.89 - Other cerebral infarction (2) Dementia Conclusion/Plan: Patient has history of Advanced dementia. His daughter report patient take Seroquel 50mg 3 times daily daily in the home, and it seems good control of his agitation. We will resume patient home Seroquel, continue support for pt. (3) Elevated lactic acid level Conclusion/Plan: pt has lactic acid 2.3. it is likely caused by his dehydration. IVF and recheck lactic acid. pt was reported to lay at floor but unknown during time, will check CK level. continue lab monitor - Lab Results Fish Bones: 01/05/21 12:22 01/05/21 12:22 Core Measures - Anticipated LOS I expect patient to be DC'd or transferred within 96 hours.: Yes - DVT/VTE - Prophylaxis VTE/DVT Device ordered at admit?: Yes VTE/DVT Prophylaxis med ordered at admit?: Yes
[2021-01-05] MEDS ORDERED: HALOPERIDOL 5 MG/ML VIAL IVP ONE (18:10)
[2021-01-05] MEDS: SODIUM CHLORIDE FLUSH 0.9% 10 ML SYRINGE IVP SCH (18:22)
[2021-01-05] MEDS ORDERED: QUEtiapine 25 MG TABLET PO SCH (18:30)
[2021-01-05] MEDS: LACTATED RINGERS 1,000 ML IV SCH (18:35)
[2021-01-05 18:43] LABS: B. PARAPERTUSSIS- RESP PCR PAN NOT DETECTED; B. PERTUSSIS- RESP PCR PANEL NOT DETECTED; C. PNEUMONIAE- RESP PCR PANEL NOT DETECTED; CORONAVIRUS 229E-RESP PCR NOT DETECTED; CORONAVIRUS HKU1-RESP PCR NOT DETECTED; CORONAVIRUS NL63-RESP PCR NOT DETECTED; CORONAVIRUS OC43-RESP PCR NOT DETECTED; HUMAN METAPNEUMOVIRUS NOT DETECTED; INFLUENZA A- RESP PCR PANEL NOT DETECTED; INFLUENZA B - RESP PCR PANEL NOT DETECTED; M. PNEUMONIAE- RESP PCR PANEL NOT DETECTED; PARAINFLUENZA VIRUS 1 NOT DETECTED; PARAINFLUENZA VIRUS 2 NOT DETECTED; PARAINFLUENZA VIRUS 3 NOT DETECTED; PARAINFLUENZA VIRUS 4 NOT DETECTED; RHINOVIRUS/ENTEROVIRUS NOT DETECTED; RSV- RESP PCR PANEL NOT DETECTED; SARS-CoV-2 -RESP PCR PANEL NOT DETECTED
[2021-01-05] MEDS ORDERED: diphenhydrAMINE INJ 50 MG/ML VIAL IVP STA (19:53)
[2021-01-05] MEDS ORDERED: HALOPERIDOL 5 MG/ML VIAL IVP PRN (21:00)
[2021-01-05] MEDS: QUEtiapine 25 MG TABLET PO SCH (23:36)
[2021-01-05] MEDS: ATORVASTATIN 40 MG TABLET PO SCH (23:36)
[2021-01-06] MEDS: LACTATED RINGERS 1,000 ML IV SCH (04:24)
[2021-01-06] MEDS: SODIUM CHLORIDE FLUSH 0.9% 10 ML SYRINGE IVP SCH ×3 (04:25→14:04)
[2021-01-06] MEDS: QUEtiapine 25 MG TABLET PO SCH ×3 (05:33→21:56)
[2021-01-06 05:47] LABS: BASOPHILS # (AUTO) 0.1 10^3/uL (0.0-0.1); BASOPHILS % (AUTO) 0.6 %; EOSINOPHILS # (AUTO) 0.1 10^3/uL (0.0-0.7); EOSINOPHILS % (AUTO) 1.6 %; HCT - HEMATOCRIT 50.5 % (42.0-52.0); HGB - HEMOGLOBIN 16.2 g/dL (14.0-18.0); LYMPHOCYTES # (AUTO) 2.6 10^3/uL (1.5-3.5); MEAN CORPUSCULAR HEMOGLOBIN 29.4 pg (27.0-31.0); MEAN CORPUSCULAR HGB CONC 32.1 g/dL (32.0-36.0); MEAN CORPUSCULAR VOLUME 91.7 fL (80.0-94.0); MEAN PLATELET VOLUME 10.3 fL (7.4-11.4); MONOCYTES # (AUTO) 1.1 10^3/uL (0.0-1.0); MONOCYTES % (AUTO) 12.1 %; NEUTROPHILS % (AUTO) 56.4 %; PLT - PLATELET COUNT 169 10^3/uL (130-450); RED BLOOD COUNT 5.51 10^6/uL (4.70-6.10); RED CELL DISTRIBUTION WIDTH 14.3 % (12.0-15.0); WHITE BLOOD COUNT 8.9 x10^3/uL (4.8-10.8)
[2021-01-06 05:55] LABS: CREATININE 0.8 mg/dL (0.6-1.2); POTASSIUM 3.7 mmol/L (3.5-5.0)
[2021-01-06 06:03] LABS: CHOL/HDL RATIO 6.2 (<5.0); CHOLESTEROL 259 mg/dL; HDL CHOLESTEROL 42 mg/dL; LDL CHOLESTEROL,CALCULATED 192 mg/dL; LDL/HDL RATIO 4.6 (<3.6); TRIGLYCERIDES 124 mg/dL; VLDL CHOLESTEROL 25 mg/dL
[2021-01-06] MEDS ORDERED: ASPIRIN 325 MG TABLET PO SCH (08:00)
[2021-01-06] MEDS: ENOXAPARIN 40 MG/0.4 ML SYRINGE SUBQ SCH (10:21)
--- NOTE | 2021-01-06 10:30 | PROVIDER PROGRESS NOTE ---
Subjective - Prog Note Date Prog Note Date: 01/06/21 - Subjective Subjective: Daughter is present at bedside. The patient is unable to provide a history due to his dementia. Current Medications - Current Medications Current Medications: Active Medications Acetaminophen (Acetaminophen 325 Mg Tablet) 650 mg PO Q4HR PRN PRN Reason: Pain 1 to 4 Aspirin (Aspirin Chew 81 Mg Tablet) 81 mg PO DAILY [facility] Atorvastatin Calcium (Atorvastatin 40 Mg Tablet) 80 mg PO QPM [facility] Last Admin: 01/05/21 23:36 Dose: Not Given Documented by: Enoxaparin Sodium (Enoxaparin 40 Mg/0.4 Ml Syringe) 40 mg SUBQ DAILY [facility] Last Admin: 01/06/21 10:21 Dose: Not Given Documented by: Lactated Ringer's (Lr) 1,000 mls @ 100 mls/hr IV .Q10H [facility] Stop: 01/06/21 12:59 Last Admin: 01/06/21 04:24 Dose: 100 mls/hr Documented by: Ondansetron HCl (Ondansetron 4 Mg/2 Ml Vial) 4 mg IVP Q6HR PRN PRN Reason: Nausea / Vomiting Quetiapine Fumarate (Quetiapine 25 Mg Tablet) 50 mg PO TID [facility] Last Admin: 01/06/21 05:33 Dose: 50 mg Documented by: Sodium Chloride (Sodium Chloride Flush 0.9% 10 Ml Syringe) 10 ml IVP PRN PRN PRN Reason: NEEDED PER PROVIDER ORDERS Sodium Chloride (Sodium Chloride Flush 0.9% 10 Ml Syringe) 10 ml IVP 0100,0900,1700 [facility] Last Admin: 01/06/21 11:08 Dose: Not Given Documented by: Aspirin Chewable [[place] Aspirin] 81 mg PO DAILY 08/09/13 Metformin HCl 500 mg PO DAILY 08/09/13 Metronidazole/Skin Cleansr #23 [[place] 0.75% Cream Kit] 1 each TP DAILY 4 Mometasone Furoate [Elocon] 15 gm TP DAILY 08/09/13 Multivit-Min/FA/Lycopene/Lut [Centrum Silver Tablet] 1 tab PO DAILY 08/09/13 Simvastatin [Zocor] 40 mg PO DAILY 08/09/13 EPINEPHrine [Epipen 2-Lion] 0.3 mg SUBQ ONCE PRN 06/10/14 Quetiapine Fumarate [Seroquel] 01/05/21 Objective - Vital Signs/Intake & Output Reviewed Vital Signs: Yes Vital Signs: Vital Signs x48h Temp Pulse Resp BP Pulse Ox 01/06/21 08:18 36.3 C L 58 L 16 134/69 H 95 Intake & Output: Intake & Output 01/03/21 01/04/21 01/05/21 01/06/21 23:59 23:59 23:59 23:59 Intake Total 1000 1081.667 Balance 1000 1081.667 - Objective General Appearance: positive: No acute distress, Alert Eyes Bilateral: positive: Normal inspection, Conjunctivae nml ENT: positive: ENT inspection nml Neck: positive: Nml inspection Respiratory: positive: No respiratory distress. negative: Wheezes, Rales Cardiovascular: positive: Regular rate & rhythm, No murmur. negative: Tachycardia Abdomen: positive: Non-tender, No distention. negative: Tenderness Skin: positive: Warm, Dry Extremities: positive: No pedal edema Neurologic/Psychiatric: positive: Slurred/abnml speech (Speech is slurred although he does not speak very much. Appears to have expressive aphasia.), Other (Motor strength grossly intact in the left upper and lower extremity. He has quite a strength deficit in his right upper and lower extremities although this is limited as he does not follow commands consistently.) - Lab Results Fish Bones: 01/06/21 05:39 01/06/21 05:39 Other Labs: Lab Results x24hrs 01/06/21 01/06/21 01/06/21 Range/Units 05:39 05:39 05:39 WBC 8.9 (4.8-10.8) x10^3/uL RBC 5.51 (4.70-6.10) 10^6/uL Hgb 16.2 (14.0-18.0) g/dL Hct 50.5 (42.0-52.0) % MCV 91.7 (80.0-94.0) fL MCH 29.4 (27.0-31.0) pg MCHC 32.1 (32.0-36.0) g/dL RDW 14.3 (12.0-15.0) % Plt Count 169 (130-450) 10^3/uL MPV 10.3 (7.4-11.4) fL Neut # (Auto) 5.0 (1.5-6.6) 10^3/uL Lymph # (Auto) 2.6 (1.5-3.5) 10^3/uL [place] # (Auto) 1.1 H (0.0-1.0) 10^3/uL Eos # (Auto) 0.1 (0.0-0.7) 10^3/uL Baso # (Auto) 0.1 (0.0-0.1) 10^3/uL Absolute Nucleated RBC 0.00 x10^3/uL Nucleated RBC % 0.0 /100WBC Sodium 138 (135-145) mmol/L Potassium 3.7 (3.5-5.0) mmol/L Chloride 103 (101-111) mmol/L Carbon Dioxide 23 (21-32) mmol/L Anion Gap 12.0 (6-13) BUN 9 (6-20) mg/dL Creatinine 0.8 (0.6-1.2) mg/dL Estimated GFR (MDRD) 92 (>89) Glucose 99 (70-100) mg/dL Lactic Acid (0.5-2.2) mmol/L Calcium 9.0 (8.5-10.3) mg/dL Total Bilirubin (0.2-1.0) mg/dL AST (10-42) IU/L ALT (10-60) IU/L Alkaline Phosphatase (42-121) IU/L Total Creatine Kinase (22-269) IU/L Troponin I High Sens (2.3-19.7) ng/L Total Protein (6.7-8.2) g/dL Albumin (3.2-5.5) g/dL Globulin (2.1-4.2) g/dL Albumin/Globulin Ratio (1.0-2.2) Triglycerides 124 ( - 149) mg/dL Cholesterol 259 H ( - 199) mg/dL LDL Cholesterol, Calc 192 H ( - 129) mg/dL VLDL Cholesterol 25 mg/dL HDL Cholesterol 42 L (60 - ) mg/dL LDL/HDL Ratio 4.6 (<3.6) Cholesterol/HDL Ratio 6.2 (<5.0) Lipase (22-51) U/L Urine Color Urine Clarity (CLEAR) Urine pH (5.0-7.5) PH Ur Specific [place] (1.002-1.030) Urine Protein (NEGATIVE) mg/dL Urine Glucose (UA) (NEGATIVE) mg/dL Urine Ketones (NEGATIVE) mg/dL Urine Occult Blood (NEGATIVE) Urine Nitrite (NEGATIVE) Urine Bilirubin (NEGATIVE) Urine Urobilinogen (NORMAL) E.U./dL Ur Leukocyte Esterase (NEGATIVE) Ur Microscopic Review Urine Culture Comments Nasal Adenovirus (PCR) Nasal B. parapertussis DNA (PCR) Nasal Coronavir 229E PCR Nasal Coronavir HKU1 PCR Nasal Coronavir NL63 PCR Nasal Coronavir OC43 PCR Nasal Enterovir/Rhinovir PCR Nasal Influenza B PCR Nasal Influenza A PCR Nasal Parainfluen 1 PCR Nasal Parainfluen 2 PCR Nasal Parainfluen 3 PCR Nasal Parainfluen 4 PCR Nasal RSV (PCR) Nasal B.pertussis DNA PCR Nasal C.pneumoniae (PCR) Jr Human Metapneumo PCR Nasal M.pneumoniae (PCR) Nasal SARS-CoV-2 (PCR) 01/05/21 01/05/21 01/05/21 Range/Units 18:16 18:16 16:53 WBC (4.8-10.8) x10^3/uL RBC (4.70-6.10) 10^6/uL Hgb (14.0-18.0) g/dL Hct (42.0-52.0) % MCV (80.0-94.0) fL MCH (27.0-31.0) pg MCHC (32.0-36.0) g/dL RDW (12.0-15.0) % Plt Count (130-450) 10^3/uL MPV (7.4-11.4) fL Neut # (Auto) (1.5-6.6) 10^3/uL Lymph # (Auto) (1.5-3.5) 10^3/uL [place] # (Auto) (0.0-1.0) 10^3/uL Eos # (Auto) (0.0-0.7) 10^3/uL Baso # (Auto) (0.0-0.1) 10^3/uL Absolute Nucleated RBC x10^3/uL Nucleated RBC % /100WBC Sodium (135-145) mmol/L Potassium (3.5-5.0) mmol/L Chloride (101-111) mmol/L Carbon Dioxide (21-32) mmol/L Anion Gap (6-13) BUN (6-20) mg/dL Creatinine (0.6-1.2) mg/dL Estimated GFR (MDRD) (>89) Glucose (70-100) mg/dL Lactic Acid 2.1 (0.5-2.2) mmol/L Calcium (8.5-10.3) mg/dL Total Bilirubin (0.2-1.0) mg/dL AST (10-42) IU/L ALT (10-60) IU/L Alkaline Phosphatase (42-121) IU/L Total Creatine Kinase 100 (22-269) IU/L Troponin I High Sens (2.3-19.7) ng/L Total Protein (6.7-8.2) g/dL Albumin (3.2-5.5) g/dL Globulin (2.1-4.2) g/dL Albumin/Globulin Ratio (1.0-2.2) Triglycerides ( - 149) mg/dL Cholesterol ( - 199) mg/dL LDL Cholesterol, Calc ( - 129) mg/dL VLDL Cholesterol mg/dL HDL Cholesterol (60 - ) mg/dL LDL/HDL Ratio (<3.6) Cholesterol/HDL Ratio (<5.0) Lipase (22-51) U/L Urine Color Urine Clarity (CLEAR) Urine pH (5.0-7.5) PH Ur Specific [place] (1.002-1.030) Urine Protein (NEGATIVE) mg/dL Urine Glucose (UA) (NEGATIVE) mg/dL Urine Ketones (NEGATIVE) mg/dL Urine Occult Blood (NEGATIVE) Urine Nitrite (NEGATIVE) Urine Bilirubin (NEGATIVE) Urine Urobilinogen (NORMAL) E.U./dL Ur Leukocyte Esterase (NEGATIVE) Ur Microscopic Review Urine Culture Comments Nasal Adenovirus (PCR) NOT DETECTED Nasal B. parapertussis DNA (PCR) NOT DETECTED Nasal Coronavir 229E PCR NOT DETECTED Nasal Coronavir HKU1 PCR NOT DETECTED Nasal Coronavir NL63 PCR NOT DETECTED Nasal Coronavir OC43 PCR NOT DETECTED Nasal Enterovir/Rhinovir PCR NOT DETECTED Nasal Influenza B PCR NOT DETECTED Nasal Influenza A PCR NOT DETECTED Nasal Parainfluen 1 PCR NOT DETECTED Nasal Parainfluen 2 PCR NOT DETECTED Nasal Parainfluen 3 PCR NOT DETECTED Nasal Parainfluen 4 PCR NOT DETECTED Nasal RSV (PCR) NOT DETECTED Nasal B.pertussis DNA PCR NOT DETECTED Nasal C.pneumoniae (PCR) NOT DETECTED Jr Human Metapneumo PCR NOT DETECTED Nasal M.pneumoniae (PCR) NOT DETECTED Nasal SARS-CoV-2 (PCR) NOT DETECTED 01/05/21 01/05/21 01/05/21 Range/Units 15:46 12:22 12:22 WBC (4.8-10.8) x10^3/uL RBC (4.70-6.10) 10^6/uL Hgb (14.0-18.0) g/dL Hct (42.0-52.0) % MCV (80.0-94.0) fL MCH (27.0-31.0) pg MCHC (32.0-36.0) g/dL RDW (12.0-15.0) % Plt Count (130-450) 10^3/uL MPV (7.4-11.4) fL Neut # (Auto) (1.5-6.6) 10^3/uL Lymph # (Auto) (1.5-3.5) 10^3/uL [place] # (Auto) (0.0-1.0) 10^3/uL Eos # (Auto) (0.0-0.7) 10^3/uL Baso # (Auto) (0.0-0.1) 10^3/uL Absolute Nucleated RBC x10^3/uL Nucleated RBC % /100WBC Sodium (135-145) mmol/L Potassium (3.5-5.0) mmol/L Chloride (101-111) mmol/L Carbon Dioxide (21-32) mmol/L Anion Gap (6-13) BUN (6-20) mg/dL Creatinine (0.6-1.2) mg/dL Estimated GFR (MDRD) (>89) Glucose (70-100) mg/dL Lactic Acid 2.3 H (0.5-2.2) mmol/L Calcium (8.5-10.3) mg/dL Total Bilirubin (0.2-1.0) mg/dL AST (10-42) IU/L ALT (10-60) IU/L Alkaline Phosphatase (42-121) IU/L Total Creatine Kinase (22-269) IU/L Troponin I High Sens 6.5 (2.3-19.7) ng/L Total Protein (6.7-8.2) g/dL Albumin (3.2-5.5) g/dL Globulin (2.1-4.2) g/dL Albumin/Globulin Ratio (1.0-2.2) Triglycerides ( - 149) mg/dL Cholesterol ( - 199) mg/dL LDL Cholesterol, Calc ( - 129) mg/dL VLDL Cholesterol mg/dL HDL Cholesterol (60 - ) mg/dL LDL/HDL Ratio (<3.6) Cholesterol/HDL Ratio (<5.0) Lipase (22-51) U/L Urine Color YELLOW Urine Clarity CLEAR (CLEAR) Urine pH 7.0 (5.0-7.5) PH Ur Specific [place] 1.010 (1.002-1.030) Urine Protein NEGATIVE (NEGATIVE) mg/dL Urine Glucose (UA) NEGATIVE (NEGATIVE) mg/dL Urine Ketones NEGATIVE (NEGATIVE) mg/dL Urine Occult Blood NEGATIVE (NEGATIVE) Urine Nitrite NEGATIVE (NEGATIVE) Urine Bilirubin NEGATIVE (NEGATIVE) Urine Urobilinogen 0.2 (NORMAL) (NORMAL) E.U./dL Ur Leukocyte Esterase NEGATIVE (NEGATIVE) Ur Microscopic Review NOT INDICATED Urine Culture Comments NOT INDICATED Nasal Adenovirus (PCR) Nasal B. parapertussis DNA (PCR) Nasal Coronavir 229E PCR Nasal Coronavir HKU1 PCR Nasal Coronavir NL63 PCR Nasal Coronavir OC43 PCR Nasal Enterovir/Rhinovir PCR Nasal Influenza B PCR Nasal Influenza A PCR Nasal Parainfluen 1 PCR Nasal Parainfluen 2 PCR Nasal Parainfluen 3 PCR Nasal Parainfluen 4 PCR Nasal RSV (PCR) Nasal B.pertussis DNA PCR Nasal C.pneumoniae (PCR) Jr Human Metapneumo PCR Nasal M.pneumoniae (PCR) Nasal SARS-CoV-2 (PCR) 01/05/21 01/05/21 Range/Units 12:22 12:22 WBC 8.3 (4.8-10.8) x10^3/uL RBC 5.35 (4.70-6.10) 10^6/uL Hgb 15.7 (14.0-18.0) g/dL Hct 48.2 (42.0-52.0) % MCV 90.1 (80.0-94.0) fL MCH 29.3 (27.0-31.0) pg MCHC 32.6 (32.0-36.0) g/dL RDW 14.5 (12.0-15.0) % Plt Count 174 (130-450) 10^3/uL MPV 10.5 (7.4-11.4) fL Neut # (Auto) 5.5 (1.5-6.6) 10^3/uL Lymph # (Auto) 2.0 (1.5-3.5) 10^3/uL [place] # (Auto) 0.7 (0.0-1.0) 10^3/uL Eos # (Auto) 0.1 (0.0-0.7) 10^3/uL Baso # (Auto) 0.1 (0.0-0.1) 10^3/uL Absolute Nucleated RBC 0.00 x10^3/uL Nucleated RBC % 0.0 /100WBC Sodium 142 (135-145) mmol/L Potassium 4.3 (3.5-5.0) mmol/L Chloride 103 (101-111) mmol/L Carbon Dioxide 27 (21-32) mmol/L Anion Gap 12.0 (6-13) BUN 15 (6-20) mg/dL Creatinine 1.1 (0.6-1.2) mg/dL Estimated GFR (MDRD) 64 L (>89) Glucose 128 H (70-100) mg/dL Lactic Acid (0.5-2.2) mmol/L Calcium 9.7 (8.5-10.3) mg/dL Total Bilirubin 1.4 H (0.2-1.0) mg/dL AST 22 (10-42) IU/L ALT 18 (10-60) IU/L Alkaline Phosphatase 93 (42-121) IU/L Total Creatine Kinase 73 (22-269) IU/L Troponin I High Sens (2.3-19.7) ng/L Total Protein 8.2 (6.7-8.2) g/dL Albumin 4.3 (3.2-5.5) g/dL Globulin 3.9 (2.1-4.2) g/dL Albumin/Globulin Ratio 1.1 (1.0-2.2) Triglycerides ( - 149) mg/dL Cholesterol ( - 199) mg/dL LDL Cholesterol, Calc ( - 129) mg/dL VLDL Cholesterol mg/dL HDL Cholesterol (60 - ) mg/dL LDL/HDL Ratio (<3.6) Cholesterol/HDL Ratio (<5.0) Lipase 26 (22-51) U/L Urine Color Urine Clarity (CLEAR) Urine pH (5.0-7.5) PH Ur Specific [place] (1.002-1.030) Urine Protein (NEGATIVE) mg/dL Urine Glucose (UA) (NEGATIVE) mg/dL Urine Ketones (NEGATIVE) mg/dL Urine Occult Blood (NEGATIVE) Urine Nitrite (NEGATIVE) Urine Bilirubin (NEGATIVE) Urine Urobilinogen (NORMAL) E.U./dL Ur Leukocyte Esterase (NEGATIVE) Ur Microscopic Review Urine Culture Comments Nasal Adenovirus (PCR) Nasal B. parapertussis DNA (PCR) Nasal Coronavir 229E PCR Nasal Coronavir HKU1 PCR Nasal Coronavir NL63 PCR Nasal Coronavir OC43 PCR Nasal Enterovir/Rhinovir PCR Nasal Influenza B PCR Nasal Influenza A PCR Nasal Parainfluen 1 PCR Nasal Parainfluen 2 PCR Nasal Parainfluen 3 PCR Nasal Parainfluen 4 PCR Nasal RSV (PCR) Nasal B.pertussis DNA PCR Nasal C.pneumoniae (PCR) Jr Human Metapneumo PCR Nasal M.pneumoniae (PCR) Nasal SARS-CoV-2 (PCR) Assessment/Plan - Problem List (1) CVA (cerebral vascular accident) Impression: It appears he has most likely had an infarct secondary to the left internal carotid occlusion/stenosis. He still has significant right-sided deficits al though difficult to assess as he has dementia at baseline did not follow commands consistently. We have allowed permissive hypertension and I started him on aspirin and statin. I spoke with his daughter at bedside and she would like to continue these therapies but does not want aggressive measures as he does not feel that she would want that. She is made it quite clear he would not want a PEG tube if he would have difficulty with dysphagia. We have agreed not obtain MRI as it would not pipe changer. He will be seen by physical therapy and she is open to the idea of a SNF if he can be considered for this. She does not want to commit to hospice quite yet but is open to the idea if he does not show much improvement over next few days/weeks. Qualifiers: CVA mechanism: stenosis Precerebral and cerebral artery: carotid artery Laterality of affected vessel: left Qualified Code(s): I63.232 - Cerebral infarction due to unspecified occlusion or stenosis of left carotid arteries (2) Carotid artery disease Impression: This was evident on the CTA of the head and neck as he had a distal left internal carotid occlusion/stenosis. It was felt he would not be a good surgical candidate and so medical management has been decided. He is on aspirin and statin. Qualifiers: Carotid artery disease type: stenosis Laterality: left Qualified Code(s): I65.22 - Occlusion and stenosis of left carotid artery (3) Dementia Impression: He has advanced dementia at baseline. We will continue Seroquel which he takes at home to help with occasional agitation.
[2021-01-06] MEDS: ASPIRIN CHEW 81 MG TABLET PO SCH (14:01)
[2021-01-06] MEDS: ATORVASTATIN 40 MG TABLET PO SCH (21:56)
[2021-01-07] MEDS: SODIUM CHLORIDE FLUSH 0.9% 10 ML SYRINGE IVP SCH ×3 (05:10→22:28)
[2021-01-07] MEDS: QUEtiapine 25 MG TABLET PO SCH ×3 (06:01→22:28)
[2021-01-07 06:09] LABS: BASOPHILS # (AUTO) 0.1 10^3/uL (0.0-0.1); BASOPHILS % (AUTO) 0.4 %; EOSINOPHILS # (AUTO) 0.1 10^3/uL (0.0-0.7); EOSINOPHILS % (AUTO) 0.8 %; HCT - HEMATOCRIT 48.3 % (42.0-52.0); LYMPHOCYTES # (AUTO) 2.5 10^3/uL (1.5-3.5); LYMPHOCYTES % (AUTO) 21.1 %; MEAN CORPUSCULAR HEMOGLOBIN 29.4 pg (27.0-31.0); MEAN CORPUSCULAR HGB CONC 33.1 g/dL (32.0-36.0); MEAN CORPUSCULAR VOLUME 88.6 fL (80.0-94.0); MEAN PLATELET VOLUME 10.5 fL (7.4-11.4); MONOCYTES # (AUTO) 1.2 10^3/uL (0.0-1.0); MONOCYTES % (AUTO) 10.4 %; NEUTROPHILS # (AUTO) 7.9 10^3/uL (1.5-6.6); PLT - PLATELET COUNT 194 10^3/uL (130-450); RED BLOOD COUNT 5.45 10^6/uL (4.70-6.10); RED CELL DISTRIBUTION WIDTH 14.2 % (12.0-15.0); WHITE BLOOD COUNT 11.8 x10^3/uL (4.8-10.8)
[2021-01-07 06:17] LABS: CALCIUM 9.2 mg/dL (8.5-10.3); CREATININE 0.8 mg/dL (0.6-1.2); POTASSIUM 3.5 mmol/L (3.5-5.0)
[2021-01-07] MEDS: ENOXAPARIN 40 MG/0.4 ML SYRINGE SUBQ SCH (07:22)
--- NOTE | 2021-01-07 07:22 | PROVIDER PROGRESS NOTE ---
Subjective - Prog Note Date Prog Note Date: 01/07/21 - Subjective Subjective: He appears comfortable in bed. Daughter is at bedside and noticed he appears much improved today. A little more interactive. Current Medications - Current Medications Current Medications: Active Medications Acetaminophen (Acetaminophen 325 Mg Tablet) 650 mg PO Q4HR PRN PRN Reason: Pain 1 to 4 Aspirin (Aspirin Chew 81 Mg Tablet) 81 mg PO DAILY [facility] Last Admin: 01/07/21 14:51 Dose: 81 mg Documented by: Atorvastatin Calcium (Atorvastatin 40 Mg Tablet) 80 mg PO QPM [facility] Last Admin: 01/06/21 21:56 Dose: 80 mg Documented by: Enoxaparin Sodium (Enoxaparin 40 Mg/0.4 Ml Syringe) 40 mg SUBQ DAILY [facility] Last Admin: 01/07/21 07:22 Dose: Not Given Documented by: Ondansetron HCl (Ondansetron 4 Mg/2 Ml Vial) 4 mg IVP Q6HR PRN PRN Reason: Nausea / Vomiting Quetiapine Fumarate (Quetiapine 25 Mg Tablet) 50 mg PO TID [facility] Last Admin: 01/07/21 14:51 Dose: 50 mg Documented by: Sodium Chloride (Sodium Chloride Flush 0.9% 10 Ml Syringe) 10 ml IVP PRN PRN PRN Reason: NEEDED PER PROVIDER ORDERS Sodium Chloride (Sodium Chloride Flush 0.9% 10 Ml Syringe) 10 ml IVP 0100,0900,1700 [facility] Last Admin: 01/07/21 14:52 Dose: 10 ml Documented by: Quetiapine Fumarate [Seroquel] 50 mg PO TID 01/05/21 Objective - Vital Signs/Intake & Output Reviewed Vital Signs: Yes Vital Signs: Vital Signs x48h Temp Pulse Resp BP Pulse Ox 01/07/21 05:27 36.9 C 90 18 118/68 92 Intake & Output: Intake & Output 01/04/21 01/05/21 01/06/21 01/07/21 23:59 23:59 23:59 22:59 Intake Total 1000 2621.667 Balance 1000 2621.667 - Objective General Appearance: positive: No acute distress, Alert Eyes Bilateral: positive: Normal inspection, Conjunctivae nml ENT: positive: ENT inspection nml Neck: positive: Nml inspection Respiratory: positive: No respiratory distress. negative: Wheezes, Rales Cardiovascular: positive: Regular rate & rhythm. negative: Tachycardia Abdomen: positive: Non-tender, No distention. negative: Tenderness Skin: positive: Warm, Dry Neurologic/Psychiatric: positive: Other (He still has about 1-2 out of 5 motor strength in the right upper extremity. Right lower extremity is about 3-4 out of 5. He does not follow commands consistently.) - Lab Results Fish Bones: 01/07/21 05:11 01/07/21 05:11 Other Labs: Lab Results x24hrs 01/07/21 01/07/21 Range/Units 05:11 05:11 WBC 11.8 H (4.8-10.8) x10^3/uL RBC 5.45 (4.70-6.10) 10^6/uL Hgb 16.0 (14.0-18.0) g/dL Hct 48.3 (42.0-52.0) % MCV 88.6 (80.0-94.0) fL MCH 29.4 (27.0-31.0) pg MCHC 33.1 (32.0-36.0) g/dL RDW 14.2 (12.0-15.0) % Plt Count 194 (130-450) 10^3/uL MPV 10.5 (7.4-11.4) fL Neut # (Auto) 7.9 H (1.5-6.6) 10^3/uL Lymph # (Auto) 2.5 (1.5-3.5) 10^3/uL [place] # (Auto) 1.2 H (0.0-1.0) 10^3/uL Eos # (Auto) 0.1 (0.0-0.7) 10^3/uL Baso # (Auto) 0.1 (0.0-0.1) 10^3/uL Absolute Nucleated RBC 0.00 x10^3/uL Nucleated RBC % 0.0 /100WBC Sodium 136 (135-145) mmol/L Potassium 3.5 (3.5-5.0) mmol/L Chloride 101 (101-111) mmol/L Carbon Dioxide 23 (21-32) mmol/L Anion Gap 12.0 (6-13) BUN 10 (6-20) mg/dL Creatinine 0.8 (0.6-1.2) mg/dL Estimated GFR (MDRD) 92 (>89) Glucose 142 H (70-100) mg/dL Calcium 9.2 (8.5-10.3) mg/dL Assessment/Plan - Problem List (1) CVA (cerebral vascular accident) Impression: He appears improved today. Still has significant right upper extremity weakness but his right lower extremity appears improved. No obvious facial droop or difficult to assess as he does not follow commands consistently due to his underlying dementia. He has been on aspirin and statin now. We will obtain echocardiogram tomorrow but no MRI as it would not mold insert changer we do not think he would be able to tolerate it. The plan will be to discharge him to a SNF to see how much of his functional status he can maintain before hopefully getting him home. Qualifiers: CVA mechanism: stenosis Precerebral and cerebral artery: carotid artery Laterality of affected vessel: left Qualified Code(s): I63.232 - Cerebral infarction due to unspecified occlusion or stenosis of left carotid arteries (2) Carotid artery disease Impression: This was evident on the CTA of the head and neck as he had a distal left internal carotid occlusion/stenosis. It was felt he would not be a good surgical candidate and so medical management has been decided. He is on aspirin and statin. Qualifiers: Carotid artery disease type: stenosis Laterality: left Qualified Code(s): I65.22 - Occlusion and stenosis of left carotid artery (3) Dementia Impression: He has advanced dementia at baseline. We will continue Seroquel which he takes at home to help with occasional agitation.
--- NOTE | 2021-01-07 12:41 | PHARMACY PROGRESS NOTE ---
- Best Possible Medication History Admit Date and Time: 01/05/21 1658 Processed by: Pharmacy Medication History completed: Yes Patient Interview: Pt unable to participate Secondary Source(s): Other family member, Pharmacy records, Insurance records Patient's daughter states that the only medication her father takes is quetiapine. As the person ultimately responsible for medication therapy, providers are able to order a medication from an existing home medication list in [facility] via the "Reconcile Routine" prior to Confirmation of that medication by desktop support consultant. Such practice is discouraged except when the physician, in their clinical j udgment, deems that a medical need exists for a medication without regard to previous use.
[2021-01-07] MEDS: ASPIRIN CHEW 81 MG TABLET PO SCH (14:51)
[2021-01-07] MEDS: ATORVASTATIN 40 MG TABLET PO SCH (22:28)
[2021-01-08] MEDS: SODIUM CHLORIDE FLUSH 0.9% 10 ML SYRINGE IVP SCH ×3 (00:41→16:32)
[2021-01-08 06:02] LABS: BASOPHILS % (AUTO) 0.5 %; EOSINOPHILS # (AUTO) 0.2 10^3/uL (0.0-0.7); EOSINOPHILS % (AUTO) 2.4 %; HCT - HEMATOCRIT 46.9 % (42.0-52.0); HGB - HEMOGLOBIN 15.7 g/dL (14.0-18.0); LYMPHOCYTES # (AUTO) 2.3 10^3/uL (1.5-3.5); LYMPHOCYTES % (AUTO) 30.8 %; MEAN CORPUSCULAR HEMOGLOBIN 29.6 pg (27.0-31.0); MEAN CORPUSCULAR HGB CONC 33.5 g/dL (32.0-36.0); MEAN CORPUSCULAR VOLUME 88.5 fL (80.0-94.0); MEAN PLATELET VOLUME 10.5 fL (7.4-11.4); MONOCYTES % (AUTO) 13.1 %; NEUTROPHILS # (AUTO) 3.9 10^3/uL (1.5-6.6); NEUTROPHILS % (AUTO) 52.9 %; PLT - PLATELET COUNT 199 10^3/uL (130-450); RED CELL DISTRIBUTION WIDTH 14.3 % (12.0-15.0); WHITE BLOOD COUNT 7.5 x10^3/uL (4.8-10.8)
[2021-01-08 06:12] LABS: CALCIUM 9.6 mg/dL (8.5-10.3); CREATININE 0.9 mg/dL (0.6-1.2); POTASSIUM 3.7 mmol/L (3.5-5.0)
[2021-01-08] MEDS: QUEtiapine 25 MG TABLET PO SCH ×3 (06:33→22:13)
[2021-01-08] MEDS: ASPIRIN CHEW 81 MG TABLET PO SCH (08:15)
[2021-01-08] MEDS: ENOXAPARIN 40 MG/0.4 ML SYRINGE SUBQ SCH (08:15)
--- NOTE | 2021-01-08 16:13 | PROVIDER PROGRESS NOTE ---
Subjective - Prog Note Date Prog Note Date: 01/08/21 - Subjective Subjective: He has no complaints. Daughter is at bedside and noticed he has been more interactive and communicating more. Current Medications - Current Medications Current Medications: Active Medications Acetaminophen (Acetaminophen 325 Mg Tablet) 650 mg PO Q4HR PRN PRN Reason: Pain 1 to 4 Aspirin (Aspirin Chew 81 Mg Tablet) 81 mg PO DAILY [facility] Last Admin: 01/08/21 08:15 Dose: 81 mg Documented by: Atorvastatin Calcium (Atorvastatin 40 Mg Tablet) 80 mg PO QPM [facility] Last Admin: 01/07/21 22:28 Dose: 80 mg Documented by: Enoxaparin Sodium (Enoxaparin 40 Mg/0.4 Ml Syringe) 40 mg SUBQ DAILY [facility] Last Admin: 01/08/21 08:15 Dose: 40 mg Documented by: Ondansetron HCl (Ondansetron 4 Mg/2 Ml Vial) 4 mg IVP Q6HR PRN PRN Reason: Nausea / Vomiting Quetiapine Fumarate (Quetiapine 25 Mg Tablet) 50 mg PO TID [facility] Last Admin: 01/08/21 13:31 Dose: 50 mg Documented by: Sodium Chloride (Sodium Chloride Flush 0.9% 10 Ml Syringe) 10 ml IVP PRN PRN PRN Reason: NEEDED PER PROVIDER ORDERS Sodium Chloride (Sodium Chloride Flush 0.9% 10 Ml Syringe) 10 ml IVP 0100,0900,1700 [facility] Last Admin: 01/08/21 08:15 Dose: 10 ml Documented by: Quetiapine Fumarate [Seroquel] 50 mg PO TID 01/05/21 Objective - Vital Signs/Intake & Output Reviewed Vital Signs: Yes Vital Signs: Vital Signs x48h Pulse Pulse Pulse Resp BP BP BP 01/08/21 16:00 99 18 133/77 H 01/08/21 11:20 89 88 128/78 103/62 Pulse Ox 01/08/21 16:00 98 01/08/21 11:20 Intake & Output: Intake & Output 01/06/21 01/07/21 01/07/21 01/08/21 00:59 00:59 23:59 23:59 Intake Total 340 Balance 340 - Objective General Appearance: positive: No acute distress, Alert Eyes Bilateral: positive: Normal inspection ENT: positive: ENT inspection nml Neck: positive: Nml inspection Respiratory: positive: No respiratory distress. negative: Wheezes, Rales Cardiovascular: positive: Regular rate & rhythm, No murmur. negative: Tachycardia Abdomen: positive: Non-tender, No distention. negative: Tenderness Skin: positive: Warm, Dry Extremities: positive: No pedal edema Neurologic/Psychiatric: positive: Disoriented to place, Disoriented to time, Other (He is able to move his right upper extremity now although this is about 3-4 out of 5 motor strength. Fine motor movement is still lacking but this is a significant improvement.). negative: Disoriented to person - Lab Results Fish Bones: 01/08/21 05:35 01/08/21 05:35 Other Labs: Lab Results x24hrs 01/08/21 01/08/21 Range/Units 05:35 05:35 WBC 7.5 (4.8-10.8) x10^3/uL RBC 5.30 (4.70-6.10) 10^6/uL Hgb 15.7 (14.0-18.0) g/dL Hct 46.9 (42.0-52.0) % MCV 88.5 (80.0-94.0) fL MCH 29.6 (27.0-31.0) pg MCHC 33.5 (32.0-36.0) g/dL RDW 14.3 (12.0-15.0) % Plt Count 199 (130-450) 10^3/uL MPV 10.5 (7.4-11.4) fL Neut # (Auto) 3.9 (1.5-6.6) 10^3/uL Lymph # (Auto) 2.3 (1.5-3.5) 10^3/uL [place] # (Auto) 1.0 (0.0-1.0) 10^3/uL Eos # (Auto) 0.2 (0.0-0.7) 10^3/uL Baso # (Auto) 0.0 (0.0-0.1) 10^3/uL Absolute Nucleated RBC 0.00 x10^3/uL Nucleated RBC % 0.0 /100WBC Sodium 142 (135-145) mmol/L Potassium 3.7 (3.5-5.0) mmol/L Chloride 106 (101-111) mmol/L Carbon Dioxide 25 (21-32) mmol/L Anion Gap 11.0 (6-13) BUN 14 (6-20) mg/dL Creatinine 0.9 (0.6-1.2) mg/dL Estimated GFR (MDRD) 81 L (>89) Glucose 145 H (70-100) mg/dL Calcium 9.6 (8.5-10.3) mg/dL Assessment/Plan - Problem List (1) CVA (cerebral vascular accident) Impression: He has shown significant improvement today and his communication and has not able to move his right upper extremity. We did not obtain MRI as it would not exchange consultant and we did not think he would tolerate it. Echocardiogram revealed no significant normalities. We will keep him on aspirin and statin. He is now pending placement to a skilled nurse facility to continue rehab. Qualifiers: CVA mechanism: stenosis Precerebral and cerebral artery: carotid artery Laterality of affected vessel: left Qualified Code(s): I63.232 - Cerebral infarction due to unspecified occlusion or stenosis of left carotid arteries (2) Carotid artery disease Impression: This was the cause of his infarct. We will continue medical management with aspirin and statin. Qualifiers: Carotid artery disease type: stenosis Laterality: left Qualified Code(s): I65.22 - Occlusion and stenosis of left carotid artery (3) Dementia Impression: Stable. He is now more interactive. We will continue his home Seroquel.
[2021-01-08] MEDS: ATORVASTATIN 40 MG TABLET PO SCH (22:12)
[2021-01-09] MEDS: SODIUM CHLORIDE FLUSH 0.9% 10 ML SYRINGE IVP SCH ×2 (03:04→08:04)
[2021-01-09] MEDS: ENOXAPARIN 40 MG/0.4 ML SYRINGE SUBQ SCH (08:03)
[2021-01-09] MEDS: QUEtiapine 25 MG TABLET PO SCH ×2 (08:03→12:28)
[2021-01-09] MEDS: ASPIRIN CHEW 81 MG TABLET PO SCH (08:03)
[2021-01-09 08:16] LABS: BASOPHILS # (AUTO) 0.1 10^3/uL (0.0-0.1); BASOPHILS % (AUTO) 0.6 %; EOSINOPHILS # (AUTO) 0.2 10^3/uL (0.0-0.7); EOSINOPHILS % (AUTO) 1.4 %; HCT - HEMATOCRIT 52.2 % (42.0-52.0); HGB - HEMOGLOBIN 16.9 g/dL (14.0-18.0); LYMPHOCYTES # (AUTO) 3.3 10^3/uL (1.5-3.5); LYMPHOCYTES % (AUTO) 30.1 %; MEAN CORPUSCULAR HGB CONC 32.4 g/dL (32.0-36.0); MEAN CORPUSCULAR VOLUME 89.5 fL (80.0-94.0); MEAN PLATELET VOLUME 10.1 fL (7.4-11.4); MONOCYTES # (AUTO) 1.3 10^3/uL (0.0-1.0); MONOCYTES % (AUTO) 11.8 %; NEUTROPHILS # (AUTO) 6.1 10^3/uL (1.5-6.6); NEUTROPHILS % (AUTO) 55.8 %; PLT - PLATELET COUNT 223 10^3/uL (130-450); RED BLOOD COUNT 5.83 10^6/uL (4.70-6.10); RED CELL DISTRIBUTION WIDTH 14.3 % (12.0-15.0); WHITE BLOOD COUNT 10.9 x10^3/uL (4.8-10.8)
[2021-01-09 08:24] LABS: CALCIUM 10.3 mg/dL (8.5-10.3); CREATININE 0.9 mg/dL (0.6-1.2); POTASSIUM 3.8 mmol/L (3.5-5.0)
--- NOTE | 2021-01-09 09:27 | PROVIDER PROGRESS NOTE ---
Subjective - Prog Note Date Prog Note Date: 01/09/21 Prog Note Time: 09:25 - Subjective Pt reports feeling: Improved Subjective: Princess is sitting in his chair eating breakfast this morning. He is being fed by the nurse who reports that he is sometimes able to feed himself using his left hand, but with some difficulty. He has no control over his right hand. He took his morning Seroquel and appears to do be doing well today. He has a history of dementia and was found lying on the bathroom floor by his and was transported by [facility] on 01/05. His daughter is his DPOA and states that at baseline he is able to say hello, yes, or no but is typically not more verbal than that. Current Medications - Current Medications Current Medications: Active Medications Acetaminophen (Acetaminophen 325 Mg Tablet) 650 mg PO Q4HR PRN PRN Reason: Pain 1 to 4 Aspirin (Aspirin Chew 81 Mg Tablet) 81 mg PO DAILY [facility] Last Admin: 01/09/21 08:03 Dose: 81 mg Documented by: Atorvastatin Calcium (Atorvastatin 40 Mg Tablet) 80 mg PO QPM [facility] Last Admin: 01/08/21 22:12 Dose: Not Given Documented by: Enoxaparin Sodium (Enoxaparin 40 Mg/0.4 Ml Syringe) 40 mg SUBQ DAILY [facility] Last Admin: 01/09/21 08:03 Dose: 40 mg Documented by: Ondansetron HCl (Ondansetron 4 Mg/2 Ml Vial) 4 mg IVP Q6HR PRN PRN Reason: Nausea / Vomiting Quetiapine Fumarate (Quetiapine 25 Mg Tablet) 50 mg PO TID [facility] Last Admin: 01/09/21 08:03 Dose: 50 mg Documented by: Sodium Chloride (Sodium Chloride Flush 0.9% 10 Ml Syringe) 10 ml IVP PRN PRN PRN Reason: NEEDED PER PROVIDER ORDERS Sodium Chloride (Sodium Chloride Flush 0.9% 10 Ml Syringe) 10 ml IVP 0100,0900,1700 [facility] Last Admin: 01/09/21 08:04 Dose: Not Given Documented by: Quetiapine Fumarate [Seroquel] 50 mg PO TID 01/05/21 Objective - Vital Signs/Intake & Output Reviewed Vital Signs: Yes Vital Signs: Vital Signs x48h Pulse Resp BP Pulse Ox 01/09/21 08:00 95 20 142/81 H 100 Intake & Output: Intake & Output 01/07/21 01/07/21 01/08/21 01/09/21 00:59 23:59 23:59 23:59 Intake Total 1176 145 Balance 1176 145 - Objective General Appearance: positive: No acute distress, Alert Eyes Bilateral: positive: PERRL, EOMI ENT: positive: No signs of dehydration Neck: positive: No JVD. negative: Stiff neck Respiratory: positive: Chest non-tender, Breath sounds nml. negative: Wheezes, Rales, Rhonchi Cardiovascular: positive: Regular rate & rhythm. negative: Gallop/S4 Abdomen: positive: Non-tender, No distention Skin: positive: Warm, Dry Neurologic/Psychiatric: positive: Disoriented to place, Disoriented to time. negative: Disoriented to person - Lab Results Fish Bones: 01/09/21 08:06 01/09/21 08:09 Other Labs: Lab Results x24hrs 01/09/21 01/09/21 Range/Units 08:09 08:06 WBC 10.9 H (4.8-10.8) x10^3/uL RBC 5.83 (4.70-6.10) 10^6/uL Hgb 16.9 (14.0-18.0) g/dL Hct 52.2 H (42.0-52.0) % MCV 89.5 (80.0-94.0) fL MCH 29.0 (27.0-31.0) pg MCHC 32.4 (32.0-36.0) g/dL RDW 14.3 (12.0-15.0) % Plt Count 223 (130-450) 10^3/uL MPV 10.1 (7.4-11.4) fL Neut # (Auto) 6.1 (1.5-6.6) 10^3/uL Lymph # (Auto) 3.3 (1.5-3.5) 10^3/uL [place] # (Auto) 1.3 H (0.0-1.0) 10^3/uL Eos # (Auto) 0.2 (0.0-0.7) 10^3/uL Baso # (Auto) 0.1 (0.0-0.1) 10^3/uL Absolute Nucleated RBC 0.00 x10^3/uL Nucleated RBC % 0.0 /100WBC Sodium 143 (135-145) mmol/L Potassium 3.8 (3.5-5.0) mmol/L Chloride 104 (101-111) mmol/L Carbon Dioxide 25 (21-32) mmol/L Anion Gap 14.0 H (6-13) BUN 16 (6-20) mg/dL Creatinine 0.9 (0.6-1.2) mg/dL Estimated GFR (MDRD) 81 L (>89) Glucose 127 H (70-100) mg/dL Calcium 10.3 (8.5-10.3) mg/dL Assessment/Plan - Problem List (1) CVA (cerebral vascular accident) Impression: He continues to show significant improvement in his communication. Still not able to move his right arm. 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 Echocardiogram revealed no significant normalities. We will keep him on aspirin and statin. He is now pending placement to a skilled nurse facility to continue rehab. Qualifiers: CVA mechanism: stenosis Precerebral and cerebral artery: carotid artery Laterality of affected vessel: left Qualified Code(s): I63.232 - Cerebral infarction due to unspecified occlusion or stenosis of left carotid arteries (2) Carotid artery disease Impression: This was the cause of his infarct. We will continue medical management with aspirin and statin. Qualifiers: Carotid artery disease type: stenosis Laterality: left Qualified Code(s): I65.22 - Occlusion and stenosis of left carotid artery (3) Dementia Impression: Stable. He is now more interactive. We will continue his home Seroquel. Qualifiers: CVA mechanism: stenosis Precerebral and cerebral artery: carotid artery Laterality of affected vessel: left Qualified Code(s): I63.232 - Cerebral infarction due to unspecified occlusion or stenosis of left carotid arteries
--- NOTE | 2021-01-09 10:33 | Discharge Plan ---
"Discharge Plan for SNF / [facility] - Discharge Plan And Transition Orders Problem Reviewed?: Yes Disposition: 03 SNF DC/Xfer Condition: Stable Allergies and Adverse Reactions: Allergies Allergy/AdvReac Type Severity Reaction Status Date / Time sea food Allergy Severe Respiratory Uncoded 01/05/21 12:06 Health Concerns: 85-year-old male who has advanced dementia and presented to the emergency room after being found down in his home bathroom the morning of admission. He was incontinent of urine and stool. At baseline he does not speak very much because of his dementia. After evaluation he was found to have baseline speech, but significant right-sided weakness. CT angio of the head and neck found him to have focal high-grade stenosis of the distal portion of the left ICA. Neurology consult did not recommend thrombectomy or dual platelet therapy due to risk of bleeding. We feel that he has reached his baseline and will now need continued rehab to be able to return to home Plan of Treatment: The patient will receive physical therapy to improve his status must much as possible. Once he has plateaued, daughter will be seeking to hire private caregivers versus placing him in a memory care unit depending on how functional he becomes. She has worked closely with social work here with a list of facilities, and caregivers provided to her. Care Goals: To be ambulatory, feed himself. Due to dementia, he will need prompting for bathing, toileting, and taking his medications. Assessment: Daughter has discussed care goals at length with social work and will follow through - SNF / [facility] Transition Orders Admit to (Facility): [facility] Discharge Diagnosis: 1. 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 Dementia without behavioral disturbance 3. Lactic acidosis, mild, due to dehydration 4. Cerebrovascular disease Medicare Certification Statement: I certify that Post Hospital fdc care is medically necessary on a continuing basis for any of the conditions for which she/he is receiving care during hospitalization. Notify PCP of admission and forward orders to primary provider for signature. Weight on admission and: Weekly Other Notification Orders: Call PCP immediately if patient develops dyspnea, chest pain/tightness or edema. House Bowel Program: Yes Additional Bowel Program Orders: If no BM after 2 days, nurse may give M.O.M. 30ml PO PRN and/or ducolax Supp 1 TX and/or JED 250mg P.O., and/or senna 1-2 tabs PO. On day 3 nurse may give repeat above order until residents constipation is resolved. Annual Influenza Vaccine (between Nov 01 and May 31): Yes Two-step PPD per [facility] [id number] or approved exception documents: Yes Medication Orders: PLEASE REFER TO THE DISCHARGE MEDICATION LIST. - Diet Type: Geriatric Texture: Dysphagia [facility] Liquids: Thin May have monthly special meal: Yes - Therapies | Activity Therapy: Evaluation | Treat if indicated: Speech, PT, OT, Swallowing / ST Rehabilitation Potential: Maximize functional status, Return to independent living Activity: Activity as Tolerated Assistance Devices: Wheelchair, Walker"
--- NOTE | 2021-01-09 10:42 | DISCHARGE SUMMARY ---
"Discharge Summary Admit Date: 01/05/21 Discharge Date: 01/09/21 Discharging Provider: Peggy Moffett MD Primary Care Provider: Raj Moore MD Code Status: Do Not Attempt Resuscitation Condition at Discharge: Stable Discharge Disposition: 03 SNF DC/Xfer - DIAGNOSES Discharge Diagnoses with Status of Each Condition: 1. Left brain stroke with residual right body hemiplegia 2. Dementia without behavioral disturbance 3. Chronic aphasia 4. Carotid stenosis 5. Hyperlipidemia 6. Right knee contusion - HPI History of Present Illness: 85-year-old male who has advanced dementia and presented to the emergency room after being found down in his home bathroom the morning of admission. He was incontinent of urine and stool. At baseline he does not speak very much because of his dementia. After evaluation he was found to have baseline speech, but significant right-sided weakness. CT angio of the head and neck found him to have focal high-grade stenosis of the distal portion of the left ICA. Neurology consult did not recommend thrombectomy or dual platelet therapy due to risk of bleeding. - CONSULTS | PROCEDURES Procedures: 1. Chest x-ray with minimal appearance of increased pulmonary vascularity 2. CT of the head without acute intracranial process 3. neck CT angiogram with focal segment of high-grade stenosis versus occlusion within the distal petrous portion of the left internal carotid artery. No other areas of hemodynamically significant stenoses. 4. CT angiogram of head. No acute intracranial process. Moderate atrophy and chronic microvascular ischemic change. 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 5. Cholesterol 259, LDL 192, VLDL 25, HDL 42, triglyceride 124 6. Echocardiogram with left ventricular thickness normal. Systolic function hyperdynamic. Ejection fraction greater than 75%. Normal diastolic G. No regional wall motion abnormalities. Both atria normal size. No evidence of significant valvular heart disease. This is a preliminary report, and final report needs to be reviewed - HOSPITAL COURSE Hospital Course: Patient was initially quite aphasic. Was showing significant improvement in communication abilities by the time of discharge. Not moving his right arm at all. Difficult for him and clumsy for him to use his left arm for activities such as trying to feed himself. Echocardiogram had no significant abnormalities. He was placed on an aspirin and a statin. At discharge the daughter was very unhappy stating that she had spoken to the previous hospitalist and did not want him on a statin. I explained that both of those were indicated at least temporarily for the acute stroke. She could discuss that with the new facility if she felt strongly about stopping it. On the day of discharge the patient was sitting in his chair with the footstool up. Nurse and daughter were in the doorway discussing the patient's care when the patient decided to get up by scooting in his butt to the end of the chair and when he got to the footstool area, the chair went down and he landed going forward on his right knee, and hands. There was no blow to the head. Exam of the right knee that was contused had full range of motion. There was no pain. No ballottement. No heat. Kneecap in place. The patient shook his head no when asked if there is any pain. He worked with physical therapy and was able to participate up to 25 minutes at a time. From start to finish he was improving with his independence, with his transfers, with walking and standing tolerance. With a walker he did quite well, but without a walker he needed 2 person assist with ambulation. He has right lower extremity weakness and will allow the right foot to drag behind during ambulation. Physical therapy is recommending a front wheel walker with continued shelter facility physical therapy to improve his balance, and strengthening. He will also need occupational therapy to help with activities such as toileting, feeding himself. I am also recommending speech and swallow evaluation to make sure that his swallowing remains safe without risk of aspiration. He had mild lactic acidosis on admission that was attributed to dehydration. Cholesterol panel is as above. At discharge temperature was 36.4. Heart rate 91. Blood pressure 121/70. Respirations 16. 92% to 100% on room air. He is 5 feet 3 inches tall and weighs 62 kg. He is a silent, cooperative elderly gentleman. Able to scoot to the edge of a chair, stand to transfer to wheelchair. Slight right facial droop. Neck is supple without adenopathy or bruits. Lungs have diminished breath sounds at the bases but there is no increased respiratory effort and there are no crackles rhonchi wheezing. PMI normally placed with a regular rate and rhythm. The abdomen is soft, nontender. Extremities were carefully examined because of his sliding down to the floor and hitting his right knee. Again I can only emphasize that there is probably a slight contusion at the right lateral bony prominence but full knee range of motion is present, without ballottement, heat, or instability. Neurologically the patient is silent, slight cranial nerve impingement, right arm held close to the body. Right leg moving better than right arm. But still dragging that right leg. Greater than 30 minutes spent coordinating discharge. - ALLERGIES Allergies/Adverse Reactions: Allergies Allergy/AdvReac Type Severity Reaction Status Date / Time sea food Allergy Severe Respiratory Uncoded 01/05/21 12:06 - MEDICATIONS Home Medications: Ambulatory Orders Medication Instructions Recorded Confirmed Quetiapine Fumarate [Seroquel] 50 mg PO TID 01/05/21 01/07/21 Acetaminophen [Tylenol] 650 mg PO Q4HR PRN tablet 01/09/21 Aspirin Chewable [[place] 81 mg PO DAILY tablet 01/09/21 Aspirin] Atorvastatin [Lipitor] 80 mg PO QPM tablet 01/09/21 - LABS Result Diagrams: 01/09/21 08:06 01/09/21 08:09"
[2021-01-09 12:36] VITALS: BP 121/70
== END 2021-01-09 13:40 | DRG 65 ==
LOC: EDUNIT# → ED 11:52 → OBSVTOIN 16:58 → MS2 16:58
PROVIDERS: ADMIT Nurse Practitioner Gerontology; ATTEND Specialist
DX: I63.232 Cerebral infarction due to unspecified occlusion or stenosis of left carotid arteries (principal); G81.91 Hemiplegia, unspecified affecting right dominant side; E87.2 Acidosis; F03.90 Unspecified dementia, unspecified severity, without behavioral disturbance, psychotic disturbance, mood disturbance, and anxiety; Z20.822 Contact with and (suspected) exposure to COVID-19; E11.9 Type 2 diabetes mellitus without complications; E86.0 Dehydration; Z66 Do not resuscitate; R47.01 Aphasia; E78.5 Hyperlipidemia, unspecified; S80.01XA Contusion of right knee, initial encounter; W07.XXXA Fall from chair, initial encounter; Y92.230 Patient room in hospital as the place of occurrence of the external cause; Z79.899 Other long term (current) drug therapy; Z87.891 Personal history of nicotine dependence; Z91.81 History of falling
CPT/HCPCS: 36415; 70450; 70496; 70498; 71045; 80048; 80053; 80061; 81003; 82550; 83605; 83690; 84484; 85025; 87631; 93005; 93306; 97163; 97165; 97530; 99281; 99285; A9270; J1200; J1650; J2060; J7120; Q9967; 0202U; 81001; 83721; 87086

== ENCOUNTER 2021-06-23 12:17 | Outpatient (CLI) | payer MEDICARE, OTHER | END 2021-06-23 12:18 | disposition critical access hospital (66) | LOC: EMS 12:17 | DX: F03.91 Unspecified dementia, unspecified severity, with behavioral disturbance (principal); R45.6 Violent behavior | CPT/HCPCS: A0425; A0429 ==

== ENCOUNTER 2021-06-23 12:35 | Emergency (ER) | payer MEDICARE, OTHER ==
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
[2021-06-23] MEDS ORDERED: QUEtiapine 25 MG TABLET PO STA (13:15)
[2021-06-23 13:16] VITALS: BP 123/69
[2021-06-23 13:40] LABS: BILIRUBIN,URINE NEGATIVE (NEGATIVE); GLUCOSE, URINE (UA) NEGATIVE (NEGATIVE); KETONES,URINE (UA) NEGATIVE (NEGATIVE); LEUKOCYTE ESTERASE, URINE NEGATIVE (NEGATIVE); NITRITE,URINE NEGATIVE (NEGATIVE); OCCULT BLOOD,URINE NEGATIVE (NEGATIVE); PROTEIN,URINE NEGATIVE (NEGATIVE); UROBILINOGEN,URINE 0.2 (NORMAL) E.U./dL (NORMAL)
[2021-06-23 13:41] LABS: CLARITY,URINE SL. CLOUDY (CLEAR)
[2021-06-23 13:47] LABS: BACTERIA,URINE Moderate /HPF (None Seen); RBC,URINE None Seen /HPF (0-5); SQUAMOUS EPITHELIAL CELL,UR NONE SEEN (<= Few); WBC,URINE 0-3 /HPF (0-3)
== END 2021-06-23 13:32 | disposition home or self-care (01) ==
LOC: EDUNIT# → ED 12:35
DX: G30.9 Alzheimer's disease, unspecified (principal); F02.81 Dementia in other diseases classified elsewhere, unspecified severity, with behavioral disturbance
CPT/HCPCS: 81001; 99281; 99283; A9270; 81003; 87086

== ENCOUNTER 2022-01-13 17:14 | Outpatient (CLI) | payer MEDICARE, OTHER | END 2022-01-13 23:59 | disposition critical access hospital (66) | LOC: EMS 17:14 | DX: M25.551 Pain in right hip (principal); R10.2 Pelvic and perineal pain | CPT/HCPCS: A0425; A0429 ==

== ENCOUNTER 2022-01-13 17:31 | Emergency (ER) | payer MEDICARE, OTHER ==
[2022-01-13 17:50] VITALS: BP 148/121
[2022-01-13] MEDS ORDERED: oxyCODONE 5 MG TABLET PO STA (18:11)
--- NOTE | 2022-01-13 18:15 | ED Physician Documentation ---
History of Present Illness - Stated complaint Stated Complaint: HIP/BACK PX - Chief complaint Chief Complaint: Ext Problem - Additonal information Additional information: 86-year-old male presents emergency department for evaluation of pain in the right hip and inability to walk. This patient resides at home place. He does have severe dementia. He is also a DNR. Daughter at the bedside reports that she was told few days ago that he may have tripped but he got right back up however over the last 24 hours has been unable to get out of bed or walk due to pain. Patient's granddaughter who is a nurse reported that the right leg was ex ternally rotated raising the concern for occult hip fracture. Daughter reports to me that if there is a hip fracture it would be managed nonoperatively as neither the family nor the patient would want surgery. His daughter is the DURABLE POWER OF PHYSICAL THERAPY SUPERVISOR For medical decision making Review of Systems Unable to obtain: Dementia, Other (Per family) Musculoskeletal: reports: Back pain, Extremity pain, Joint pain PD PAST MEDICAL HISTORY - Past Medical History Cardiovascular: High cholesterol Respiratory: None Neuro: Dementia, CVA Endocrine/Autoimmune: Type 2 diabetes GI: Chronic constipation Derm: Eczema - Past Surgical History General: Appendectomy, Other - Present Medications Home Medications: Ambulatory Orders Medication Instructions Recorded Confirmed Quetiapine Fumarate [Seroquel] 50 mg PO TID 01/05/21 01/07/21 Acetaminophen [Tylenol] 650 mg PO Q4HR PRN tablet 01/09/21 Aspirin Chewable [[place] 81 mg PO DAILY tablet 01/09/21 Aspirin] Atorvastatin [Lipitor] 80 mg PO QPM tablet 01/09/21 Quetiapine Fumarate [Seroquel] 50 mg PO TID #270 tablet 06/23/21 Oxycodone HCl/Acetaminophen 1 each PO Q4H PRN #10 tablet 01/13/22 [Percocet 10-325 mg Tablet] - Allergies Allergies/Adverse Reactions: Allergies Allergy/AdvReac Type Severity Reaction Status Date / Time sea food Allergy Severe Respiratory Uncoded 06/23/21 12:46 - Social History Does the pt smoke?: No Smoking Status: Unknown if ever smoked PD ED PE EXPANDED - General General: Alert, No acute distress - Cardiac Cardiac: Regular Rate - Back Back: Vertebral tenderness (Midline tenderness with palpation of the lower thoracic and lumbar spine. No ecchymosis crepitus step-off or obvious deformity), Soft tissue tenderness - Derm Derm: Normal color, Warm and dry - Extremities Extremities: Other (Mild tenderness elicited with palpation of the right proximal femur no ecchymosis. No shortening though there is mild external rotation of the right leg. He does allow passive range of motion though it appears uncomfortable.) - Neuro Neuro: Confused, CNII-XII intact - GCS Eye Opening: Spontaneous Motor: Obeys Commands Verbal: Confused Total: 14 Results - Vitals Vitals: Vital Signs - 24 hr 01/13/22 17:45 Temperature 36.9 C Heart Rate 50 L Respiratory 18 Rate Blood Pressure 148/121 H O2 Saturation 96 Oxygen O2 Source Room air - Rads (name of study) cervical ct Radiology: Final report received (No acute fracture or traumatic subluxation of the cervical spine) thoracic ct Radiology: Final report received (T12 fracture with superior endplate involvement and less than 50% height loss) CT head Radiology: Final report received (No acute intracranial abnormality) lumbar ct Radiology: Final report received (Burst fracture L4 vertebral block body with less than 50% height loss) pelvic CT Radiology: Final report received (No acute fracture) cxr Radiology: Final report received (Low lung volumes particular on the right with suspected scar at the right lung base.) PD MEDICAL DECISION MAKING - ED course Complexity details: reviewed results, re-evaluated patient, considered differential, d/w patient ED course: 86-year-old male who has a history of dementia as well as previous CVA nearly 1 year ago who resides at home place comes to the emergency department with back p ain and reported right hand pain. He had an unwitnessed fall in the last few days. His daughter at the bedside who is his medical DURABLE POWER OF PHYSICAL THERAPY SUPERVISOR reports that the patient is a DNR. Should there be any acute findings such as hip or thoracic fracture they would wish no treatment of this. They simply want to enhance his care and quality of life for what ever time he has remaining. I did do a CT of the head and cervical spine and no acute traumatic findings were found. He was rather tender with palpation of his lower thoracic and lumbar spine. Unfortunately CT imaging does show T12 and L4 burst compression fractures. He has normal movement of the legs and hips. Though he had reported right hip pain the CT is negative for findings of acute fracture and I suspect most of his pain is radiating from the burst fractures. A prescription for Percocet has been sent to the [facility]. I have also placed a palliative care consult as it seems that the family wishes to transition his care at this time. In addition he is a DNR. I made the recommendation to increase his doses of MiraLAX at home so that he does not develop constipation. I also made the recommendation for Colace. Otherwise we will follow-up closely with primary care provider and again a palliative care consult has been ordered Departure - Departure Disposition: 01 Home, Self Care Clinical Impression: Fall from ground level, T12 burst fracture Dementia Qualifiers: Dementia type: unspecified type Dementia severity: mild Dementia behavioral or psychological symptom: with agitation Qualified Code(s): F03.A11 - Unspecified dementia, mild, with agitation L4 vertebral fracture Qualifiers: Encounter type: initial encounter Fracture type: closed Fracture morphology: burst- stable Qualified Code(s): S32.041A - Stable burst fracture of fourth lumbar vertebra, initial encounter for closed fracture Back pain Qualifiers: Back pain location: thoracic back pain Chronicity: acute Back pain laterality: midline Qualified Code(s): M54.6 - Pain in thoracic spine Condition: Serious Instructions: ED Fx Comp Vertebral Prescriptions: oxyCODONE [Roxicodone] 5 mg PO TID PRN #20 tablet PRN Reason: Pain Comments: Princess was seen today in the emergency department after an unwitnessed fall at home place. He had reported pain in his back and right hip. The CT of his head and cervical spine showed no worrisome findings. The CT of his thoracic and lumbar spine do show a T12 and an L4 burst/compression fracture. The CT of his hip does not show an obvious fracture and he has been able to range and move the hip well here in the ER It sounds like when he is starting to decline with regards to his cognition and now his ability to walk. We have sent a prescription for Percocet to the [facility] in [place]. This can be taken 2-3 times a day for pain. It will cause significant constipation therefore he needs to begin taking the MiraLAX 1 capful once or twice daily so that he is having daily bowel movements. He should also begin taking Colace 100 mg twice daily. Both of these are available [id number]. Because Nadine is a DO NOT RESUSCITATE and appears to have declining health and function in order to help further preserve his quality of life we have made a referral to palliative care. These doctors can talk to you about care measures to help reduce pain and improve the quality of his life as he continues through the last years of his time here You should hear from palliative care this upcoming week. Please discuss this ED visit with his primary care doctor as soon as possible as that will be integral in long-term care management
--- NOTE | 2022-01-13 18:34 | XRAY Report ---
PROCEDURE: Chest 1 View X-Ray INDICATIONS: chest pain TECHNIQUE: One view of the chest was acquired. COMPARISON: None. FINDINGS: Surgical changes and devices: None. Lungs and pleura: Suspected scar in the right lung base. Low lung volumes, particularly on the right . Mild diffuse interstitial opacities, versus vascular crowding. No effusions. Mediastinum: Mediastinal contours appear normal. Heart size is normal. Bones and chest wall: No suspicious bony lesions. Overlying soft tissues appear unremarkable. IMPRESSION: Low lung volumes, particularly on the right, with a suspected scar at the right lung base. Mild diffu se interstitial prominence can be seen with edema or atypical infection. Differential includes vascul ar crowding. No effusions. Reviewed by: Sylvain Cabrera MD on 01/13/2022 6:32 PM PST Approved by: Sylvain Cabrera MD on 01/13/2022 6:32 PM [facility] Station ID: [id number]
--- NOTE | 2022-01-13 18:44 | CT Report ---
PROCEDURE: LUMBAR SPINE WO INDICATIONS: pain, falls TECHNIQUE: Noncontrast 3 mm thick sections acquired from the T12 level to the sacrum. Sagittal and coronal refo rmats were constructed. For radiation dose reduction, the following was used: automated exposure co ntrol, adjustment of mA and/or kV according to patient size. COMPARISON: None. FINDINGS: Image quality: Excellent Bones: Burst fracture of the L4 vertebral body with less than 50% height loss, extending to the poste rior cortex. Mild spondylosis mild spondylosis. T12 superior endplate fracture is also present. Soft tissues: Unremarkable IMPRESSION: L4 and T12 fractures as above. Reviewed by: Sylvain Cabrera MD on 01/13/2022 6:43 PM PST Approved by: Sylvain Cabrera MD on 01/13/2022 6:43 PM PST Station ID: [id number]
--- NOTE | 2022-01-13 18:48 | CT Report ---
PROCEDURE: PELVIS WO INDICATIONS: ? right hip pain vs fx TECHNIQUE: Noncontrast 3 mm axial sections acquired through the bony pelvis, with coronal and sagittal reformatt ing. For radiation dose reduction, the following was used: automated exposure control, adjustment of mA and/or kV according to patient size. COMPARISON: None. FINDINGS: Image quality: Excellent. Bones: No pelvic ring disruption. Soft tissues: Right gluteal intramuscular hematoma. IMPRESSION: No acute fracture. Lumbar spine findings separately dictated. Right gluteal intramuscular hematoma. Reviewed by: Sylvain Cabrera MD on 01/13/2022 6:47 PM PST Approved by: Sylvain Cabrera MD on 01/13/2022 6:47 PM PST Station ID: [id number]
[2022-01-13] MEDS ORDERED: QUEtiapine 25 MG TABLET PO STA (19:16)
--- NOTE | 2022-01-13 19:38 | CT Report ---
PROCEDURE: HEAD WO INDICATIONS: fall TECHNIQUE: Noncontrast 4.5 mm thick angled axial sections acquired from the foramen magnum to the vertex. For r adiation dose reduction, the following was used: automated exposure control, adjustment of mA and/or kV according to patient size. COMPARISON: 01/05/2021 FINDINGS: Image quality: Slightly motion degraded CSF spaces: Basal cisterns are patent. Lateral ventricles are symmetric. Volume: Periventricular white matter hypoattenuation is commonly seen with chronic small vessel disea se. Volume loss is present. These findings are moderate to severe. Brain: No intracranial hemorrhage. Kelley-white differentiation is grossly maintained. Craniofacial structures: No displaced fracture. Sinuses are clear. Orbits are intact. Small scalp con tusion. IMPRESSION: No acute intracranial abnormality. Reviewed by: Sylvain Cabrera MD on 01/13/2022 7:37 PM PST Approved by: Sylvain Cabrera MD on 01/13/2022 7:37 PM PST Station ID: [id number]
--- NOTE | 2022-01-13 19:40 | CT Report ---
PROCEDURE: CERVICAL SPINE WO INDICATIONS: unwittnessed fall, L4 fx TECHNIQUE: Noncontrast 3 mm thick sections acquired from the skull base to the T4 level. Sagittal and coronal r eformats were then constructed. For radiation dose reduction, the following was used: automated exp osure control, adjustment of mA and/or kV according to patient size. COMPARISON: None. FINDINGS: Image quality: Excellent Bones: Mild to moderate spondylosis. No acute fracture or traumatic subluxation. Pannus around C1-C2 articulation. Soft tissues: No prevertebral soft tissue swelling or apical pneumothorax IMPRESSION: No acute fracture or traumatic subluxation of the cervical spine. Reviewed by: Sylvain Cabrera MD on 01/13/2022 7:39 PM PST Approved by: Sylvain Cabrera MD on 01/13/2022 7:39 PM PST Station ID: [id number]
--- NOTE | 2022-01-13 19:44 | CT Report ---
PROCEDURE: THORACIC SPINE WO INDICATIONS: fall; L4 fx TECHNIQUE: Noncontrast 3 mm thick sections acquired through the region of interest in the thoracic spine. Sagit jamal and coronal reformats were then constructed. For radiation dose reduction, the following was used : automated exposure control, adjustment of mA and/or kV according to patient size. COMPARISON: None. FINDINGS: Image quality: Slightly motion degraded Bones: Superior endplate deformity of T12 possibly acute. There is less than 50% height loss. Mild ov erall spondylosis Soft tissues: Partially seen basal lung atelectasis/scarring. Possible component airspace disease. Th ere are mitral annular and coronary calcifications. The partially evaluated upper abdominal structure s are unremarkable. Moderate pancreatic fatty atrophy. IMPRESSION: T12 fracture with superior endplate involvement and less than 50% height loss again seen. Otherwise no acute fracture or traumatic subluxation of the thoracic spine. This CT is motion degraded. Possible basal pulmonary airspace disease and atelectasis. Reviewed by: Sylvain Cabrera MD on 01/13/2022 7:43 PM PST Approved by: Sylvain Cabrera MD on 01/13/2022 7:43 PM PST Station ID: [id number]
== END 2022-01-13 21:46 | disposition home or self-care (01) ==
LOC: EDUNIT# → ED 17:31
DX: S32.041A Stable burst fracture of fourth lumbar vertebra, initial encounter for closed fracture (principal); W18.30XA Fall on same level, unspecified, initial encounter; F03.C0 Unspecified dementia, severe, without behavioral disturbance, psychotic disturbance, mood disturbance, and anxiety; E11.9 Type 2 diabetes mellitus without complications; Z66 Do not resuscitate
CPT/HCPCS: 70450; 71045; 72125; 72128; 72131; 72192; 99281; 99284; A9270

== ENCOUNTER 2022-01-13 21:31 | Outpatient (CLI) | payer MEDICARE, OTHER | END 2022-01-13 21:32 | disposition home or self-care (01) | LOC: EMS 21:31 | PROVIDERS: ATTEND Registered Nurse | DX: S22.081A Stable burst fracture of T11-T12 vertebra, initial encounter for closed fracture (principal); Z74.01 Bed confinement status; S32.049A Unspecified fracture of fourth lumbar vertebra, initial encounter for closed fracture; W19.XXXA Unspecified fall, initial encounter; F03.90 Unspecified dementia, unspecified severity, without behavioral disturbance, psychotic disturbance, mood disturbance, and anxiety | CPT/HCPCS: A0425; A0428 ==